=== PATIENT | female | born 1955 | race African-American/Black ===

== ENCOUNTER 2017-05-24 23:37 | Inpatient (IN) | payer BC, OTHER ==
[2017-05-25 00:41] LABS: #Eosinphils 0.1 thou/uL (0.0-0.7); #Lymphocytes 2.8 thou/uL (1.20-3.40); #Monocytes 0.4 thou/uL (0.11-0.59); #Neutrophils 4.1 thou/uL (1.40-6.50); %Basophils 0.4 % (0.0-1.0); %Eosinophils 0.9 % (0.0-10.0); %Lymphocytes 37.7 % (21.0-51.0); %Monocytes 5.6 % (0.0-10.0); Hematocrit 42.3 % (36.0-47.0); Mean Platelet Volume 6.4 fL (7.4-10.4); Red Blood Cell (RBC) Count 4.55 mill/uL (4.20-5.40); White Blood Cell (WBC) Count 7.4 thou/uL (4.8-10.8)
[2017-05-25 01:02] LABS: ALT (SGPT) 14 U/L (8-55); AST (SGOT) 19 U/L (5-34); Alkaline Phosphatase 120 U/L (40-150); Anion Gap 13 mmol/L (10-20); BUN (Urea Nitrogen) 11 mg/dL (9.8-20.1); Bilirubin, Total 0.3 mg/dL (0.2-1.2); CK (CPK) 151 U/L (29-168); Calc. Creatinine Clearance 0 mL/min (70-130); Calcium 9.3 mg/dL (7.8-10.44); Carbon Dioxide 27 mmol/L (23-31); Chloride 104 mmol/L (98-107); Estimated GFR-MDRD 78; Globulin 4.2 g/dL (2.4-3.5); Protein, Total 8.1 g/dL (6.0-8.3)
[2017-05-25 01:07] LABS: Troponin I 0.016 ng/mL (< 0.028)
[2017-05-25 03:54] LABS: Troponin I 0.151 ng/mL (< 0.028)
[2017-05-25] MEDS ORDERED: Ondansetron HCl/PF 4 MG/2 ML Vial IVP PRN ×2 (04:56→05:45)
[2017-05-25] MEDS ORDERED: Ondansetron ODT 4 MG TAB SL PRN (04:56)
[2017-05-25 05:36] VITALS: BMI 26.3
[2017-05-25] MEDS ORDERED: Acetaminophen 650 MG Suppository PR PRN (05:45)
[2017-05-25] MEDS ORDERED: Ondansetron ODT 4 MG TAB PO PRN (05:45)
[2017-05-25] MEDS ORDERED: Dextrose 50% Abboject 50 ML SYRINGE SLOW IVP PRN (05:45)
[2017-05-25] MEDS ORDERED: Bisacodyl 10 MG SUPP PR PRN (05:45)
[2017-05-25] MEDS ORDERED: HumaLOG 300 UNITS/3 ML VIAL SC PRN (05:45)
[2017-05-25] MEDS ORDERED: Nitroglycerin 0.4 MG TAB (25 Tab Bottle) SL PRN (05:45)
[2017-05-25] MEDS ORDERED: Bisacodyl 5 MG TAB PO PRN (05:45)
[2017-05-25] MEDS ORDERED: Dextrose 5% in Water 1,000 ML IV PRN (05:45)
[2017-05-25] MEDS ORDERED: Acetaminophen 325 MG TAB PO PRN (05:45)
[2017-05-25 06:45] LABS: Magnesium 2.5 mg/dL (1.6-2.6); Phosphorus 3.4 mg/dL (2.3-4.7)
[2017-05-25 07:40] LABS: Hemoglobin A1c 9.5 % (4.0-6.0)
--- NOTE | 2017-05-25 07:57 | RAD ---
PORTABLE AP CHEST X-RAY: 05/25/2017 HISTORY: Chest pain. COMPARISON: 04/01/2014 FINDINGS: The cardiac silhouette and pulmonary vasculature are within normal limits. The lungs remain clear. There has been no interval change from the prior study. IMPRESSION: No acute cardiopulmonary process. POS: [facility]
--- NOTE | 2017-05-25 08:00 | HP-2 ---
DATE OF ADMISSION: 05/25/2017 LOCATION OF ADMISSION: [facility]. CODE STATUS: FULL PCP: Chad Mendes M.D. ATTENDING: Dr. Langley. RESIDENT: Kennedy Lemus M.D., PGY1. HISTORIAN: The patient herself. CHIEF COMPLAINT: Chest pain. HISTORY OF PRESENT ILLNESS: This is a 61-year-old -English female that had started experien cing chest pain around 9:00 this evening, said she was lying down in bed, said the pain lasted about 15 minutes, said the pain started in her chest, it was a sharp pain, radiated to the back and then radiated down her left arm, in which at that time she also experienced some numbness in the left arm . Denies any radiation of pain up the neck or into the jaw and stated that pain went away. She did not take anything or do anything to hope thing go away. She said when she was in the waiting room, the pain came back. Chest pain lasted a short time and stated it was not as bad. Reported experie ncing some nausea with this. Denied any vomiting. Denied any dizziness or loss of consciousness. Denied any other symptoms at this time. REVIEW OF SYSTEMS: All review of systems not listed in HPI are otherwise negative at this time. PAST MEDICAL HISTORY: Diabetes, hypertension, depression/anxiety. PAST SURGICAL HISTORY: Tubal ligation. ALLERGIES: No known drug allergies. MEDICATIONS: She takes lisinopril 10 mg, Zoloft, and takes Lantus 60 units. FAMILY HISTORY: Mom had breast cancer and dad was a diabetic. SOCIAL HISTORY: She is a ejly-gqri-com-day smoker for the last 3 years. No alcohol use and no illi cit drug use. PHYSICAL EXAMINATION: VITAL SIGNS: Blood pressure is 133/91, pulse is 88, respirations 16, temperature 98.0, pulse ox is 97% on room air, current weight is 71.67 kilograms. GENERAL: She is alert and oriented x3, well-developed, well-nourished, appropriately interactive. Eyes: Conjunctivae within normal limits. ENT: Oropharynx within normal limits. NECK: Supple, no lymphadenopathy, no thyromegaly, no bruits. CARDIOVASCULAR: Regular rate and rhythm. No murmurs, no gallops. Radial pulses and pedal pulses p alpated bilaterally. RESPIRATORY: Normal breathing effort, no retractions. Symmetric chest expansion. LUNGS: Clear to auscultation bilaterally. No wheezes, crackles. SKIN: Warm, dry. No cyanosis, lesions. ABDOMEN: Soft, nontender to palpation. Bowel sounds heard in all 4 quadrants. No masses. No dist ention. MUSCULOSKELETAL: Moves all extremities bilaterally. NEUROLOGIC: No focal neuro deficits. Sensation within normal limits. PSYCHIATRIC: Appropriate. LABORATORY DATA: White blood cell count 7.4, hemoglobin 13.6, hematocrit 42.3, MCV is 93, platelets 332. Sodium is 140, potassium 4.0, chloride is 104, bicarbonate 27, BUN is 11, creatinine is 0.89, blood glucose is 147, calcium is 9.3, total protein is 8.1, albumin 3.9, alkaline phosphatase is 12 0, AST is 19, ALT is 14, total bilirubin is 0.4. CK was 151, CK-MB was 2.0, and troponins were 0.01 6. A chest x-ray, official read was not completed, but from our read no abnormality was noted at this t jeovany. Heart size looked normal. ASSESSMENT AND PLAN: 1. Atypical versus typical chest pain. We will admit her to telemetry observation overnight and co ntinue on telemetry monitoring. We will continue to trend her troponins at least for 3 and we will give nitroglycerin p.r.n. for chest pain. We will start her on aspirin. We will start her on a mod erate dose statin at this time, as she was not taking any. We will make her n.p.o. at midnight. We will order her stress test in the morning, as she has never had any cardiac workup in the past she states. We will check her TSH, magnesium, and phosphorus. 2. Diabetes, type 2. We will get Accu-Cheks a.c. and at bedtime. We will start her on mild slidin g scale insulin. We will start her on Levemir according to her home dose, put her up and and give h er 30 units b.i.d. and we will check a hemoglobin A1c baseline on her. 3. Depression/anxiety. We will continue her home meds. 4. Hypertension. We will continue her home meds and continue to monitor vital signs and adjust as needed. 5. Gastroesophageal reflux disease prophylaxis. We will start her on omeprazole PPI for possible g astroesophageal reflux disease. 6. Deep vein thrombosis prophylaxis. I gave her sequential compression devices at this time.
[2017-05-25] MEDS ORDERED: Enoxaparin Sodium 80 MG/0.8 ML SYRINGE SC SCH ×2 (08:30→21:00)
[2017-05-25] MEDS ORDERED: Enoxaparin Sodium 60 MG/0.6 ML SYRINGE SC SCH ×2 (09:00→21:00)
[2017-05-25] MEDS ORDERED: Aspirin 81 mg Enteric Coated Tablet PO SCH (09:00)
[2017-05-25] MEDS ORDERED: Aspirin 325 MG TAB PO SCH (09:00)
[2017-05-25] MEDS ORDERED: Communication Order-Pharmacy FS SCH (09:45)
[2017-05-25] MEDS: Lisinopril 10 MG TAB PO SCH (10:19)
[2017-05-25] MEDS: Insulin Detemir 100 UNITS/ML 30 UNITS in Admixture Fee 1 EACH SC SCH (10:20)
--- NOTE | 2017-05-25 11:08 | CON ---
DATE OF CONSULTATION: 05/25/2017 INDICATION FOR CONSULTATION: A 61-year-old female with multiple risk factors for coronary artery di sease which include hypertension, diabetes, tobacco abuse, hypercholesterolemia, and family history of coronary artery disease. She presented to the hospital after having chest discomfort. Yesterday evening she had just gone to bed, she complained first all of her back had hurt and then spread to the left arm and to the chest area. She did not take any medication. She eventually got up out of bed. The pain did not improve. She went to the emergency room where she was admitted to the [facility] She says that she was not given any nitroglycerin in the emergency room and was only given 81 m g of aspirin. Since that time, she has been placed on Lovenox and cardiac enzymes have become posit sondra for a non-ST segment elevation myocardial infarction. She has been also placed on lisinopril an d Protonix while in the hospital. At this time, she is pain free. Cardiac enzymes have continued t o trend upwards. Her troponin I on admission to the emergency room was 0.016, second set was 0.051 and the third set is 0.84 and we obtained this early in the emergency room and it was unremarkable, it was only 2.0. 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 She has history depressions migraines, back pain. HOME MEDICATIONS: Include multivitamins, aspirin 81 mg a day, lisinopril 20 mg daily, metformin 100 0 mg b.i.d., Ambien 10 mg a day, sertraline 100 mg daily, Crestor 20 mg a day, and Lantus insulin 30 units q.12h. ALLERGIES: None. FAMILY HISTORY: She has a sister with coronary artery disease, otherwise unremarkable. SOCIAL HISTORY: She continues to smoke. There is no alcohol abuse. 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 She has 9 children, none of them have any heart disease that she i s aware of. REVIEW OF SYSTEMS: Eyes: She complains of left eye cataracts, some decrease in visions occasionall y which is also associated with her diabetes. Pulmonary: She admits to tobacco abuse for about 40 years. She smokes to half pack to 1 pack a day. She had no GI or complaints. No musculoskeleta l complaints unless she walks for a long distance and then she says she does get some discomfort in the legs; however, pulses are adequate. Neurologic: No history of seizures or syncope. PHYSICAL EXAMINATION: GENERAL: Reveals a well-developed, well-nourished female who is in no acute distress at this time. She is alert and oriented. HEENT: Shows head to be normocephalic and atraumatic. She does have very soft bilateral carotid br uits, little bit lateral on the right than the left. CARDIOVASCULAR: Reveals a regular rate and rhythm with normal S1, S2. I cannot hear an S3 nor an S 4, nor were there any significant murmurs, heaves, thrills, bruits or rubs. ABDOMEN: Soft and nontender. Positive bowel sounds are present. There is no organomegaly or steve s noted. No tenderness is noted. LUNGS: Chest is clear to auscultation. EXTREMITIES: Show no clubbing, cyanosis or edema. Pedal pulses are present. Popliteal pulses are present. NEUROLOGIC: She appears to be intact. She has normal strength and tone. SKIN: Warm and dry. DIAGNOSTIC DATA: Her EKG shows normal sinus rhythm with T-wave inversions and changes associated wi th left ventricular hypertrophy. There was no ST segment elevation noted. LABORATORY DATA: As noted above. Her creatinine is 0.89. Potassium is 4.0, hemoglobin 13.6. Card iac enzymes are as above. IMPRESSION: 1. Non-ST segment elevation myocardial infarction. I would advise her to undergo cardiac catheteri zation due to her multiple risk factors and presentation and to definitively rule out evidence of se christi coronary artery disease. If so, she may need to undergo angioplasty or stent placement or even bypass surgery. 2. History of tobacco abuse. I strongly encouraged her to stop smoking altogether. She says that she will and I suspect that some of her problems are due to the nicotine or tobacco abuse. 3. Hypercholesterolemia. She is very poorly controlled with medications. Her LDL level is 171 on Crestor 20 mg a day, we would increase this up to at least 40 mg a day and see whether or not that w ill improve the LDL level. She also will need to have a dietary consultation to ensure that she eat s a litter better diet. 4. History of hypertension. This is under good control at this time without any significant abnorm alities or any significant elevation of blood pressure at this time at home. She said her blood pre ssure also had been under reasonable control. 5. Diabetes. This will be dealt with by the primary care service. At this time, I would advise he r to undergo cardiac catheterization. I have explained the procedure and the risks to her to includ e bleeding, infection, possibility of myocardial infarction, CVA, renal insufficiency, allergic cont rast reaction and even the possibility of . She understands and agrees to proceed and we will plan for the procedure later today. Unless she becomes unstable or has an emergency during the day, then she may need to have emergency cardiac catheterization, but at this time, she appears to be do ing relatively well.
[2017-05-25] MEDS ORDERED: Nitroglycerin 0.1mg/Hour PATCH TD SCH (13:00)
[2017-05-25] MEDS ORDERED: Nitroglycerin 100MG/250ML BOT 250 ML ONE (14:41)
[2017-05-25] MEDS ORDERED: Heparin 10,000 UNITS/1 ML VIAL ONE (14:41)
[2017-05-25] MEDS ORDERED: Verapamil 5 MG/2 ML VIAL ONE (14:41)
[2017-05-25] MEDS ORDERED: traMADol HCl 50 MG TAB PO PRN (15:59)
[2017-05-25] MEDS ORDERED: Acetaminophen/Codeine 30-300mg Tablet PO PRN (15:59)
[2017-05-25] MEDS ORDERED: Sodium Chloride 0.9% 250 ML 200 ML IVPB SCH (16:15)
[2017-05-25] MEDS: Acetaminophen/Codeine 30-300mg Tablet PO PRN ×2 (16:54→21:13)
[2017-05-25] MEDS: Carvedilol 3.125 MG TAB PO SCH (16:54)
[2017-05-25] MEDS ORDERED: Communication Order-Pharmacy FS ONE (17:49)
[2017-05-25 18:46] LABS: Troponin I 13.562 ng/mL (< 0.028)
[2017-05-25] MEDS ORDERED: Atorvastatin Calcium 40 MG TAB PO SCH (21:00)
[2017-05-25] MEDS ORDERED: Insulin Detemir 100 UNITS/ML 30 UNITS in Admixture Fee 1 EACH SC SCH (21:00)
[2017-05-25] MEDS ORDERED: Atorvastatin Calcium 20 MG TAB PO SCH (21:00)
--- NOTE | 2017-05-25 23:58 | CON ---
DATE OF CONSULTATION: 05/25/2017 HISTORY OF PRESENT ILLNESS: This is a 61-year-old with cardiovascular risk factors including smokin g half-to-one pack a day, uncontrolled diabetes mellitus, severe hypertension poorly controlled and dyslipidemia. She presented after onset of chest pain about 9:00 last night to the Emergency Room w ith a non-ST elevation myocardial infarction. Her EKG showed only left ventricular hypertrophy with poor R-wave progression. She was taken to the labelling machine operator where she was found to have an occluded cir cumflex that did not visualize through collaterals. She had a distal left main of about 50%, proxim al circumflex of about 40% prior to its occlusion. She had a ramus with very distal significant fatuma nosis in two small branches. She had a ramus with about a 90% stenosis and an LAD with about 75-80% ostial stenosis and plaquing distally. The right coronary artery had about 40% mid stenosis and 50 % more distal stenosis. Left ventricular systolic function was normal/hyperdynamic. PAST MEDICAL HISTORY: As mentioned, the past medical history includes smoking. Her diabetes mitchit us is poorly controlled on insulin with a hemoglobin A1c of about 9.5. She has a longstanding histo ry of hypertension that has been poorly controlled. PAST SURGICAL HISTORY: Tubal ligation. 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 Family is present today including two daughters. MEDICATIONS: Include Lantus insulin 30 units q.12 hours, metformin 1000 b.i.d., Zoloft 100 daily, a spirin 81 a day, lisinopril 20 a day, atorvastatin 40 a day. LABORATORY VALUES: The patient had a peak troponin of 0.84 and that was about 9 hours post-onset of pain and about 12 hours prior to this dictation. Her cholesterol level was 171. Chest x-ray was clear and did not show cardiomegaly. PHYSICAL EXAMINATION: GENERAL: Alert, cooperative lady, 5 feet 7 inches, 168 pounds. NECK: No carotid bruits, no JVD. LUNGS: Clear to auscultation. CARDIAC: Regular rate and rhythm. No murmurs. ABDOMEN: Soft, nontender. EXTREMITIES: She has palpable pedal pulses bilaterally as well as left radial pulse with a dressing on her right wrist. She has phlebitis and an IV in her left antecubital space. She is right hand dominant. PLAN: At this time is for multivessel bypass grafting. We will recheck her troponin this evening a nd pending this plan on surgical intervention tomorrow.
[2017-05-26] MEDS: Nitroglycerin 0.4 MG TAB (25 Tab Bottle) SL PRN ×2 (03:45→03:54)
[2017-05-26] MEDS: Lisinopril 10 MG TAB PO SCH (05:28)
[2017-05-26] MEDS: Carvedilol 3.125 MG TAB PO SCH (05:28)
--- NOTE | 2017-05-26 06:54 | PDOC.FM ---
- Subjective Subjective: Patient complains of minimal chest pain this morning. She states that medications given for pain overnight have been helpful. She has no questions or concerns. - Objective MAR Reviewed: Yes Vital Signs & Weight: Vital Signs (12 hours) Temp Pulse Resp BP Pulse Ox 05/26/17 03:03 98.5 F 82 16 96/59 L 95 05/25/17 23:28 98.8 F 74 20 114/46 L 96 05/25/17 20:40 98.4 F 67 14 05/25/17 19:01 98.4 F 67 14 114/56 L 96 Weight Weight 74.752 kg I&O: 05/24/17 05/25/17 05/26/17 06:59 06:59 06:59 Intake Total 0 480 Balance 0 480 Result Diagrams: 05/26/17 07:03 05/26/17 07:03 <Nayana Iglesias - Last Filed: 05/26/17 07:57> - Objective Vital Signs & Weight: Weight Weight 71.849 kg Most Recent Monitor Data Heart Rate from ECG 99 NIBP 134/73 NIBP BP-Mean 102 Respiration from ECG 17 SpO2 99 Result Diagrams: 05/27/17 04:22 05/27/17 04:22 <Pawel Langley - Last Filed: 06/06/17 12:32> Phys Exam - Physical Examination Constitutional: NAD Respiratory: clear to auscultation bilateral Cardiovascular: RRR Gastrointestinal: soft, non-tender Psychiatric: normal affect <Nayana Iglesias - Last Filed: 05/26/17 07:57> Dx/Plan (2) Coronary artery disease Code(s): I25.10 - ATHSCL HEART DISEASE OF [place] CORONARY ARTERY W/O ANG PCTRS Status: Acute Plan: Multivessel CAD. CABG today. Continue ASA, high dose statin, betablocker therapy. Stresed importance of smoking cessation (3) Uncontrolled diabetes mellitus Code(s): E11.65 - TYPE 2 DIABETES MELLITUS WITH HYPERGLYCEMIA Status: Chronic Plan: Hgb A1C of 9.2 blood sugars are well controlled. Continue accuchecks and mild ssi (4) Depression with anxiety Status: Chronic Plan: Continue Zoloft. (5) Tobacco abuse Code(s): Z72.0 - TOBACCO USE Status: Chronic Plan: Pt declined Nicotine patch during hospitalization. Plans to quit "cold turkey" (6) NSTEMI (non-ST elevated myocardial infarction) Code(s): I21.4 - NON-ST ELEVATION (NSTEMI) MYOCARDIAL INFARCTION Status: Acute <Nayana Iglesias - Last Filed: 05/26/17 07:57> Attending Addendum - Attending Addendum I personally evaluated the patient and discussed the management with Dr. Iglesias on 05/26 I agree with the History, Examination, Assessment and Plan documented above with any addition or exceptions noted below. Multi-vessel coronary disease. Pain controlled since Cath. For CABG today. <Pawel Langley - Last Filed: 06/06/17 12:32>
[2017-05-26 07:17] LABS: #Lymphocytes 1.5 thou/uL (1.20-3.40); #Monocytes 0.6 thou/uL (0.11-0.59); %Eosinophils 0.2 % (0.0-10.0); %Lymphocytes 13.2 % (21.0-51.0); %Monocytes 5.5 % (0.0-10.0); Hematocrit 37.1 % (36.0-47.0); Mean Platelet Volume 6.7 fL (7.4-10.4); Red Blood Cell (RBC) Count 3.93 mill/uL (4.20-5.40); White Blood Cell (WBC) Count 11.1 thou/uL (4.8-10.8)
[2017-05-26 07:37] LABS: Anion Gap 11 mmol/L (10-20); BUN (Urea Nitrogen) 12 mg/dL (9.8-20.1); Calc. Creatinine Clearance 70 mL/min (70-130); Calcium 9.4 mg/dL (7.8-10.44); Carbon Dioxide 28 mmol/L (23-31); Chloride 106 mmol/L (98-107); Estimated GFR-MDRD 68
[2017-05-26] MEDS ORDERED: Fentanyl 250 MCG/5 ML VIAL ONE (08:58)
[2017-05-26] MEDS ORDERED: Midazolam HCl 5 mg/5 ml Vial ONE (08:58)
[2017-05-26] MEDS ORDERED: Vecuronium 10 MG VIAL ONE ×2 (08:58→10:18)
[2017-05-26] MEDS ORDERED: Dexmedetomidine 200 MCG/2 ML VIAL ONE (08:58)
[2017-05-26] MEDS ORDERED: Aspirin 81 mg Enteric Coated Tablet PO SCH (09:00)
[2017-05-26] MEDS ORDERED: CEFAZOLIN/Water 2 GM/20 ML SYRINGE ONE (09:36)
[2017-05-26] MEDS ORDERED: Midazolam HCl 2 mg/2 ml Vial ONE (09:40)
[2017-05-26] MEDS ORDERED: Heparin 10,000 UNITS/1 ML VIAL 30,000 UNITS in Sodium Chloride 0.9% 1,000 ML FS SCH (09:45)
[2017-05-26] MEDS ORDERED: Labetalol 100 MG/20 ML MDV ONE (10:18)
[2017-05-26] MEDS ORDERED: Lidocaine 2% MPF 10 ML AMP (For Epidural Use) ONE (10:18)
[2017-05-26] MEDS ORDERED: Propofol 200 MG/20 ML VIAL ONE (10:18)
[2017-05-26] MEDS ORDERED: DOPamine 400 MG/D5W 250 ML 250 ML ONE (10:26)
[2017-05-26] MEDS ORDERED: Nitroglycerin 50 MG/250 ML BOT 250 ML ONE (10:26)
[2017-05-26] MEDS ORDERED: Hetastarch 6% 500 ML 500 ML IVPB PRN (13:54)
[2017-05-26] MEDS ORDERED: Acetaminophen 325 MG TAB PO PRN (13:54)
[2017-05-26] MEDS ORDERED: Post-Op Insulin Drip Protocol IVPB ONE (13:54)
[2017-05-26] MEDS ORDERED: hydrALAZINE 20 MG/ML VIAL SLOW IVP PRN (13:54)
[2017-05-26] MEDS ORDERED: Bisacodyl 5 MG TAB PO PRN (13:54)
[2017-05-26] MEDS ORDERED: Phenylephrine 10 MG/NS 250 ML 250 ML IVPB PRN (13:54)
[2017-05-26] MEDS ORDERED: DOPamine 400 MG/D5W 250 ML 250 ML IVPB PRN (13:54)
[2017-05-26] MEDS ORDERED: Nitroglycerin 50 MG/250 ML BOT 250 ML IVPB PRN (13:54)
[2017-05-26] MEDS ORDERED: Mag-Al 1200 mg/1200 mg/30 ML UDCUP PO PRN (13:54)
[2017-05-26] MEDS ORDERED: Promethazine HCl 25 MG/ML VIAL IM PRN (13:54)
[2017-05-26] MEDS ORDERED: HYDROcodone/Acetaminophen 5/325 mg Tablet PO PRN (13:54)
[2017-05-26] MEDS ORDERED: Fentanyl 100 MCG/2 ML VIAL SLOW IVP PRN (13:54)
[2017-05-26] MEDS ORDERED: Ondansetron HCl/PF 4 MG/2 ML Vial IVP PRN (13:54)
[2017-05-26] MEDS ORDERED: Bisacodyl 10 MG SUPP PR PRN (13:54)
[2017-05-26] MEDS ORDERED: Guaifenesin DM 100-10/5 ML UDCUP PO PRN (13:54)
[2017-05-26] MEDS ORDERED: Magnesium Sulfate 5 GM in Sodium Chloride 0.9% 250 ML 1,000 ML IV SCH (13:54)
[2017-05-26] MEDS ORDERED: Dextrose 5% in Water 1,000 ML IV PRN (14:10)
[2017-05-26] MEDS ORDERED: Dextrose 50% Abboject 50 ML SYRINGE SLOW IVP PRN (14:10)
[2017-05-26 14:30] LABS: #Eosinphils 0.1 thou/uL (0.0-0.7); #Lymphocytes 1.5 thou/uL (1.20-3.40); #Monocytes 0.5 thou/uL (0.11-0.59); #Neutrophils 14.3 thou/uL (1.40-6.50); %Basophils 0.2 % (0.0-1.0); %Eosinophils 0.5 % (0.0-10.0); Hematocrit 33.6 % (36.0-47.0); Mean Platelet Volume 6.6 fL (7.4-10.4); Red Blood Cell (RBC) Count 3.53 mill/uL (4.20-5.40); White Blood Cell (WBC) Count 16.4 thou/uL (4.8-10.8)
[2017-05-26 14:36] LABS: PTT 36.6 SEC (22.9-36.1); Prothrombin Time 17.1 SEC (12.0-14.7)
[2017-05-26] MEDS: Insulin Detemir 100 UNITS/ML 30 UNITS in Admixture Fee 1 EACH SC SCH (14:45)
[2017-05-26] MEDS: Sodium Chloride 0.9% 1,000 ML IV SCH (14:46)
[2017-05-26 14:49] LABS: Anion Gap 13 mmol/L (10-20); BUN (Urea Nitrogen) 10 mg/dL (9.8-20.1); Calc. Creatinine Clearance 96 mL/min (70-130); Calcium 7.2 mg/dL (7.8-10.44); Carbon Dioxide 19 mmol/L (23-31); Chloride 112 mmol/L (98-107); Estimated GFR-MDRD Greater than 90
--- NOTE | 2017-05-26 14:49 | OP ---
PREOPERATIVE DIAGNOSIS: Coronary artery disease, status post myocardial infarction. PROCEDURE: Coronary artery bypass graft x5, good quality JASON to a 2-2.5 mm LAD with posterior plaq ueing, good quality saphenous vein to a distal right coronary artery 2.5 mm, good quality saphenous vein to a high diagonal 1.5 mm distal disease, good quality saphenous vein to a 1.25-1.5 distal circ umflex past the occlusion, sequential graft to saphenous vein to a distal ramus proximal diagonal. SURGEON: Dr. Fredrick Franklin. TROMBONE SLIDE ASSEMBLER: Jam Sanchez MD TRANSFUSION: One unit. DESCRIPTION OF PROCEDURE: After adequate anesthesia had been obtained, the patient was prepped and draped. Endovascular vein harvest in the left leg was performed. The greater saphenous vein by Dr. Sanchez. I performed a median sternotomy and then harvested the left internal mammary artery. After heparinization, the mammary was divided distally and treated with intraluminal papaverine. It was passed posterior to a small remnant of thymus gland. However, the LAD was very anterior and directl y in the field view. Aorta and right atrium were cannulated and cardiopulmonary bypass was institut ed. Following this, aorta was cross-clamped and a liter of cardioplegic solution was given, followi ng which the distal right coronary artery was initially opened. Saphenous vein anastomoses complete d here. The circumflex distal to the occluded vessel was opened and saphenous vein was anastomosed here to be later sutured in an end-to-side fashion to the sequential graft from the distal ramus bra on [facility] and then side to side to the high diagonal. Following completion of the JASON to LAD anastomosis , the crossclamp was removed, partial occluding clamp placed, and the right coronary graft was anast omosed to the aortic root as well as the sequential diagonal ramus graft. To the site of this vein graft was placed the distal circumflex graft. The patient was then weaned from cardiopulmonary bypa ss, cannulas were removed, and protamine given systemically. The sequential graft was slightly redu ndant between the diagonal and the distal ramus; however, lie nicely in the chest. Two mediastinal drains were placed following which the sternum was reapproximated with #7 interrupted wire. Vancomy kate paste, platelet-enriched blood, and platelet-poor plasma were used on the sternum and subcutaneo us tissues. The patient is to be taken to the ICU in guarded condition.
[2017-05-26 14:59] LABS: Oxyhemoglobin 96.1 % (94.0-97.0); Sodium 142 mmol/L (135-148)
[2017-05-26 15:00] LABS: Mechanical Tidal Volume 500 ml; Mode SIMV.PSV; Modified Allen's Test NOT DONE; Pressure Support 10 cmH2O; Vent YES
--- NOTE | 2017-05-26 16:41 | RAD ---
PORTABLE AP CHEST: Date: 05-26-17 History: Post open heart surgery. Comparison: 05-25-17 FINDINGS: There have been interval post-surgical changes related to CABG. Nasogastric tube is noted in place w ith the tip overlying the expected location of the gastric fundus. A right subclavian central venous catheter is noted in place with crosses the midline and is seen overlying the supraclavicular locat ion. The exact location of the tip is difficult to determine based on this exam. It may be within a left subclavian vein which is difficult to determine based on position of the patient. Mediastinal d rains is noted in place. Cardiac silhouette and pulmonary vasculature is within normal limits. There is no pneumothorax or pleural effusion. No other interval change. Endotracheal tube is noted in pb ce with tip overlying the T4 vertebral body above the level of the william. IMPRESSION: 1. Right subclavian central venous catheter in place which crosses the midline with tip overlying th e left supraclavicular region. This probably overlies the region of the left subclavian vein. This i s difficult to determine due to patient positioning. Correlation for blood return within the cathete r is recommended. 2. Remainder of tubes and lines as described above. 3. Post-surgical changes related to CABG. No pneumothorax or pleural effusion is seen. POS: [facility]
--- NOTE | 2017-05-26 16:44 | PDOC.CTH ---
Cardiology Progress Note - Subjective Pt. seen and eval. She is back from the OR, still intubated, waking up. - ROS not able to obtain ROS - Objective Vital Signs Temp Pulse Resp BP BP Pulse Ox 05/26/17 16:00 18 05/26/17 15:42 96.2 F L 73 12 05/26/17 14:18 73 137/72 05/26/17 08:00 98.5 F 76 18 05/26/17 07:05 98.5 F 76 18 119/56 L 98 Weight 164 lb 12.8 oz 05/25/17 05/26/17 05/27/17 06:59 06:59 06:59 Intake Total 0 480 Output Total 270 Balance 0 480 -270 - Physical Examination General/Neuro: other: (Waking up, responsive.) Lungs: CTA Heart: PMI normal Abdomen: NT/ND Extremities: other: (left leg in xenia-wrap.) - Labs Result Diagrams: 05/26/17 14:15 05/26/17 14:15 Troponin/CKMB CK-MB (CK-2) 2.0 ng/mL (0-6.6) 05/25/17 00:33 Troponin I 14.270 ng/mL (< 0.028) H* 05/26/17 07:03 - Assessment/Plan 1. s/p CABG for [place] and 3-vessel disease. Stable at present. Resume cardiac meds when taking po. 2. DM: on sliding scale. 3. Hypercholesterolemia: resume statins. 4. tobacco abuse. smoking cessation education.
[2017-05-26] MEDS ORDERED: Calcium Chloride 1 GM/10 ML Abboject SYRINGE ONE (16:46)
[2017-05-26] MEDS ORDERED: Protamine Sulfate 250 MG/25 ML VIAL ONE (16:46)
[2017-05-26] MEDS ORDERED: Nitroglycerin 50 MG/250 ML BOT ONE (16:46)
[2017-05-26] MEDS ORDERED: Cardioplegic Soln 1,000 ML BAG ONE (16:46)
[2017-05-26] MEDS ORDERED: Lidocaine 2% PF 100 mg/5 ml Syringe ONE (16:46)
[2017-05-26] MEDS ORDERED: Thrombin 5000 UNITS/5 ML VIAL ONE (16:46)
[2017-05-26] MEDS ORDERED: Aminocaproic Acid 5 GM/20 ML VIAL ONE (16:46)
[2017-05-26] MEDS ORDERED: Papaverine 60 MG/2 ML VIAL ONE (16:46)
[2017-05-26] MEDS ORDERED: Magnesium Sulfate 1 GM/2 ML VIAL ONE (16:46)
[2017-05-26] MEDS ORDERED: Heparin 5,000 UNITS/ML VIAL ONE (16:46)
[2017-05-26] MEDS ORDERED: Potassium Chloride 60 MEQ/30 ML VIAL ONE (16:46)
[2017-05-26] MEDS ORDERED: Sodium Bicarb 50 MEQ/50 ML Abboject 8.4% SYRINGE ONE (16:46)
[2017-05-26] MEDS ORDERED: Heparin 30,000 units/30 ml VIAL ONE (16:46)
[2017-05-26] MEDS: Ketorolac Tromethamine 30 MG/ML VIAL IVP SCH ×2 (17:12→23:00)
[2017-05-26] MEDS: CEFAZOLIN/Water 2 GM/20 ML SYRINGE SLOW IVP SCH (17:13)
[2017-05-26] MEDS: Fentanyl 100 MCG/2 ML VIAL SLOW IVP PRN ×2 (19:39→23:50)
[2017-05-26 19:55] LABS: Hematocrit 34.3 % (36.0-47.0)
[2017-05-26] MEDS: Potassium Chloride 20 MEQ/100 ML PREMIX BAG IVPB PRN (20:19)
[2017-05-26] MEDS: Famotidine/PF 20 mg/2ml Vial SLOW IVP SCH (20:20)
[2017-05-26] MEDS: Atorvastatin Calcium 20 MG TAB PO SCH (20:20)
[2017-05-27] MEDS: CEFAZOLIN/Water 2 GM/20 ML SYRINGE SLOW IVP SCH ×2 (00:03→08:53)
[2017-05-27] MEDS: Sodium Chloride 0.9% 1,000 ML IV SCH ×3 (00:15→21:05)
[2017-05-27] MEDS: Fentanyl 100 MCG/2 ML VIAL SLOW IVP PRN (03:50)
[2017-05-27 04:46] LABS: #Lymphocytes 2.1 thou/uL (1.20-3.40); #Monocytes 0.9 thou/uL (0.11-0.59); #Neutrophils 10.5 thou/uL (1.40-6.50); %Eosinophils 0.1 % (0.0-10.0); %Lymphocytes 15.4 % (21.0-51.0); %Monocytes 6.6 % (0.0-10.0); Hematocrit 29.9 % (36.0-47.0); Red Blood Cell (RBC) Count 3.19 mill/uL (4.20-5.40); White Blood Cell (WBC) Count 13.5 thou/uL (4.8-10.8)
[2017-05-27 05:17] LABS: Anion Gap 11 mmol/L (10-20); BUN (Urea Nitrogen) 14 mg/dL (9.8-20.1); Calc. Creatinine Clearance 86 mL/min (70-130); Calcium 7.6 mg/dL (7.8-10.44); Carbon Dioxide 20 mmol/L (23-31); Chloride 114 mmol/L (98-107); Estimated GFR-MDRD 87
[2017-05-27] MEDS: Ketorolac Tromethamine 30 MG/ML VIAL IVP SCH ×3 (06:00→17:15)
[2017-05-27] MEDS: Potassium Chloride 20 MEQ/100 ML PREMIX BAG IVPB PRN (06:05)
--- NOTE | 2017-05-27 06:18 | PDOC.FM ---
- Subjective Subjective: Patient doing well this morning. She was successfully extubated this morning. She states that her pain is currently under control. No adverse events overnight. - Objective MAR Reviewed: Yes Vital Signs & Weight: Vital Signs (12 hours) Temp Pulse Resp BP Pulse Ox 05/27/17 04:00 99.9 F H 20 05/27/17 02:41 90 114/70 05/27/17 02:00 19 05/27/17 00:00 15 05/26/17 22:42 84 113/55 L 05/26/17 22:00 12 05/26/17 20:00 99.9 F H 84 12 100 05/26/17 18:28 82 101/52 L Weight Weight 74.752 kg Most Recent Monitor Data Heart Rate from ECG 88 NIBP 104/61 NIBP BP-Mean 76 Respiration from ECG 14 SpO2 100 I&O: 05/25/17 05/26/17 05/27/17 06:59 06:59 06:59 Intake Total 0 480 333.3 Output Total 1025 Balance 0 480 -691.7 Result Diagrams: 05/27/17 04:22 05/27/17 04:22 <Nayana Iglesias - Last Filed: 05/27/17 08:29> - Objective Vital Signs & Weight: Weight Weight 71.849 kg Most Recent Monitor Data Heart Rate from ECG 99 NIBP 134/73 NIBP BP-Mean 102 Respiration from ECG 17 SpO2 99 Result Diagrams: 05/27/17 04:22 05/27/17 04:22 <Pawel Langley - Last Filed: 06/06/17 12:49> Phys Exam - Physical Examination Constitutional: NAD Respiratory: clear to auscultation bilateral Cardiovascular: RRR midline anterior chest incision covered in bandages. Gastrointestinal: soft, non-tender Musculoskeletal: no edema Neurological: non-focal Psychiatric: A&O x 3 <Nayana Iglesias - Last Filed: 05/27/17 08:29> Dx/Plan (1) S/P CABG x 5 Code(s): Z95.1 - PRESENCE OF AORTOCORONARY BYPASS GRAFT Status: Acute Plan: Pt recovering well. Pt required Nitroglycerin early this morning, but BPs have remained stable since discontinuation. Will continue to monitor. H/H dropped one point from yesterday. Pt had 240 ml output in chest tube yesterday, but none overnight. Will trend H/H to monitor for signs of bleeding. No signs of infection at this time. (2) Coronary artery disease Code(s): I25.10 - ATHSCL HEART DISEASE OF [place] CORONARY ARTERY W/O ANG PCTRS Status: Acute Plan: Multivessel CAD. Continue ASA, high dose statin, betablocker therapy. Stressed importance of smoking cessation (3) Uncontrolled diabetes mellitus Code(s): E11.65 - TYPE 2 DIABETES MELLITUS WITH HYPERGLYCEMIA Status: Chronic Plan: Hgb A1C of 9.2 Blood sugars have been well-controlled. Pt was on insulin drip overnight. Will resume pt's home regimen now that she has been extubated. (4) Depression with anxiety Status: Chronic Plan: Continue Zoloft. (5) Tobacco abuse Code(s): Z72.0 - TOBACCO USE Status: Chronic Plan: Pt declined Nicotine patch during hospitalization. Plans to quit "cold turkey" <Nayana Iglesias - Last Filed: 05/27/17 08:29> Attending Addendum - Attending Addendum I personally evaluated the patient and discussed the management with Dr. Iglesias on 05/27 I agree with the History, Examination, Assessment and Plan documented above with any addition or exceptions noted below. Post-op CABG D#1. Vitals normal. Afebrile. Extubated. Pericardial tubes in place and draining minimal blood. Acceptable glycemic control. <Pawel Langley - Last Filed: 06/06/17 12:49>
[2017-05-27 07:40] LABS: Oxyhemoglobin 97.4 % (94.0-97.0); Pressure Support 10 cmH2O; Sodium 141 mmol/L (135-148); Spontaneous Rate 26 min; Vent YES
[2017-05-27 07:41] LABS: Mode PSV
--- NOTE | 2017-05-27 08:19 | RAD ---
CHEST ONE VIEW: History: Post open heart surgery. Comparison: Prior day. FINDINGS: The right central venous catheter tip is at the level of the left neck and is on an incorrect course . This likely needs to be repositioned. Endotracheal tube tip at the level of the clavicles in good position. Enteric tube tip is in the gas tric fundus. Mediastinal drain is present. No significant pneumothorax. IMPRESSION: 1. No significant change in the radiographic appearance of the chest. Subclavian central venous cath eter tip in the left supraclavicular region and may need to be repositioned. POS: [facility]
[2017-05-27] MEDS ORDERED: Insulin Detemir 100 UNITS/ML 6 UNITS in Pre-Filled Syringe 1 EACH SC SCH (08:30)
--- NOTE | 2017-05-27 08:33 | CON ---
DATE OF CONSULTATION: 05/27/2017 REASON FOR CONSULTATION: CCU protocol. HISTORY OF PRESENT ILLNESS: A 61-year-old female who underwent coronary bypass grafting surgery yes terday. She has just been extubated this morning. She is doing well and does not have any complain ts of shortness of breath. She was admitted on 05/25/2017 with chest pain and non-ST segment elevat ion myocardial infarction. PAST MEDICAL HISTORY: 1. Tobacco abuse. 2. Diabetes mellitus. 3. Hypertension. PAST SURGICAL HISTORY: Tubal ligation. SOCIAL HISTORY: Smokes at least a pack a day. Does not consume alcohol. MEDICATIONS PRIOR TO ADMISSION: Lantus, metformin, Zoloft, aspirin, lisinopril, atorvastatin. She denies any use of oxygen or inhalers. REVIEW OF SYSTEMS: Otherwise, negative. PHYSICAL EXAMINATION: VITAL SIGNS: Temperature 99.9, pulse 78, blood pressure 126/54, O2 sat 100%. GENERAL: She is awake and alert, in no distress. HEENT: Unremarkable. NECK: No JVD. LUNGS: Clear to auscultation without wheezing. CARDIOVASCULAR: S1, S2 regular. ABDOMEN: Soft. EXTREMITIES: No edema. Chest x-ray is clear. LABORATORY DATA: White blood cell count 13, hematocrit 29.9, platelet count 170. Sodium 140, potas sium 4, chloride 114, CO2 20, BUN 14, creatinine 0.8, glucose 118. ASSESSMENT: 1. Status post coronary artery bypass graft. 2. Likely underlying chronic obstructive pulmonary disease. PLAN: 1. She has been extubated. 2. Continue nebulization treatments as needed. 3. Increase activity as needed.
[2017-05-27] MEDS: Famotidine/PF 20 mg/2ml Vial SLOW IVP SCH ×2 (08:51→21:04)
[2017-05-27] MEDS ORDERED: Aspirin 325 MG TAB PO SCH (09:00)
[2017-05-27] MEDS ORDERED: Potassium Chloride 20 MEQ TAB PO SCH (10:00)
[2017-05-27] MEDS: Insulin Regular 300 UNITS/3 ML VIAL SC PRN ×3 (11:18→21:04)
[2017-05-27] MEDS: HYDROcodone/Acetaminophen 5/325 mg Tablet PO PRN ×2 (15:18→19:48)
--- NOTE | 2017-05-27 16:46 | PDOC.CTH ---
<Delisa Henriquez - Last Filed: 05/27/17 16:47> Cardiology Progress Note - Subjective The pt was seen and examined. No overnight events. No cardiac complaints. She was extubated this AM. She already up to chair every mealtime. She complains of soreness at MSI and Lt saph areas. She is willing to quit smoking - Objective Vital Signs Temp Pulse Resp BP Pulse Ox 05/27/17 08:00 100.2 F H 90 20 05/27/17 07:47 3 L 05/27/17 07:26 85 139/63 05/27/17 06:00 20 Weight 166 lb 8 oz 05/26/17 05/27/17 05/28/17 06:59 06:59 06:59 Intake Total 480 1728.7 1085 Output Total 1165 385 Balance 480 563.7 700 - Physical Examination General/Neuro: alert & oriented x3 Neck: no JVD present Lungs: CTA Heart: RRR Abdomen: soft Extremities: other: (No edema) - Telemetry Telemetry Rhythm: ST 100s - Labs Result Diagrams: 05/27/17 04:22 05/27/17 04:22 Troponin/CKMB CK-MB (CK-2) 2.0 ng/mL (0-6.6) 05/25/17 00:33 Troponin I 14.270 ng/mL (< 0.028) H* 05/26/17 07:03 - Assessment/Plan 1. CAD with s/p CABG x5 on 05/26/17 - Stable; on ASA, but not MEHRDAD or BBlocker; will start BBlocker once her BP is stable 2. DM type 2 - Blood glucose check ASHS with Insulin sliding scale. 3. Hypercholesterolemia - on Statin med. 4. tobacco abuse - She is willing to stop smoking5. Depression - on Zoloft MAR reviewed Review of Systems - Review of Systems Constitutional: reports: no symptoms reported EENTM: reports: no symptoms reported Respiratory: reports: no symptoms reported Cardiac (ROS): reports: no symptoms reported ABD/GI: reports: no symptoms reported : reports: no symptoms reported Musculoskeletal: reports: no symptoms reported Skin: reports: no symptoms reported <Bhavik Miguel - Last Filed: 05/27/17 18:49> Cardiology Progress Note - Objective Vital Signs Temp Pulse Resp BP Pulse Ox 05/27/17 08:00 100.2 F H 90 20 05/27/17 07:47 3 L 05/27/17 07:26 85 139/63 Weight 166 lb 8 oz 05/26/17 05/27/17 05/28/17 06:59 06:59 06:59 Intake Total 480 1728.7 1325 Output Total 1165 455 Balance 480 563.7 870 - Labs Result Diagrams: 05/27/17 04:22 05/27/17 04:22 Troponin/CKMB CK-MB (CK-2) 2.0 ng/mL (0-6.6) 05/25/17 00:33 Troponin I 14.270 ng/mL (< 0.028) H* 05/26/17 07:03 - Assessment/Plan Pt. seen and eval. Doing well after CABG. Nocomplaints. I agree with the A/P by the SENIOR DESIGN ENGINEERING SPECIALIST.
[2017-05-27] MEDS: Atorvastatin Calcium 20 MG TAB PO SCH (21:04)
[2017-05-28] MEDS: Ketorolac Tromethamine 30 MG/ML VIAL IVP SCH ×2 (00:07→06:09)
[2017-05-28] MEDS: HYDROcodone/Acetaminophen 5/325 mg Tablet PO PRN ×4 (00:08→22:08)
[2017-05-28] MEDS: Sodium Chloride 0.9% 1,000 ML IV SCH (06:25)
[2017-05-28] MEDS ORDERED: Guaifenesin DM 100-10/5 ML UDCUP PO PRN (06:31)
[2017-05-28] MEDS ORDERED: Bisacodyl 10 MG SUPP PR PRN (06:31)
[2017-05-28] MEDS ORDERED: Fentanyl 100 MCG/2 ML VIAL SLOW IVP PRN (06:31)
[2017-05-28] MEDS ORDERED: Milk Of Magnesia 30 ML UDCUP PO PRN (06:31)
[2017-05-28] MEDS ORDERED: Ondansetron HCl/PF 4 MG/2 ML Vial IVP PRN (06:31)
[2017-05-28] MEDS ORDERED: Bisacodyl 5 MG TAB PO PRN (06:31)
[2017-05-28] MEDS ORDERED: Nitroglycerin 0.4 MG TAB 1 EACH SL PRN (06:31)
[2017-05-28] MEDS ORDERED: Mineral Oil ENEMA PR PRN (06:31)
[2017-05-28] MEDS ORDERED: Zolpidem Tartrate 5 MG TAB PO PRN (06:31)
[2017-05-28] MEDS ORDERED: Mag-Al 1200 mg/1200 mg/30 ML UDCUP PO PRN (06:31)
[2017-05-28] MEDS ORDERED: Dextrose 5% in Water 1,000 ML IV PRN (06:49)
[2017-05-28] MEDS ORDERED: Insulin Regular 300 UNITS/3 ML VIAL SC PRN (06:49)
[2017-05-28] MEDS ORDERED: Dextrose 50% Abboject 50 ML SYRINGE SLOW IVP PRN (06:49)
[2017-05-28] MEDS ORDERED: metFORMIN 500 MG TAB PO SCH (08:00)
--- NOTE | 2017-05-28 08:09 | PRG ---
DATE OF SERVICE: 05/28/2017 She is doing well. She is going to be transferred out to the floor. PHYSICAL EXAMINATION: VITAL SIGNS: Temperature is 99.1, pulse 80, blood pressure 119/68. HEENT: Unremarkable. NECK: No adenopathy or JVD. LUNGS: Clear. CARDIAC: S1 and S2 regular. ABDOMEN: Soft. EXTREMITIES: No edema. Chest x-ray is clear. LABORATORY DATA: No new labs were obtained today. ASSESSMENT: 1. Post-coronary artery bypass graft with stable respiratory status. 2. Controlled blood sugars. PLAN: Transfer out to the floor. Continue nebulization treatments as needed. Pulmonary will be av ailable as needed.
[2017-05-28] MEDS: Potassium Chloride 20 MEQ TAB PO SCH (08:30)
[2017-05-28] MEDS: metFORMIN 500 MG TAB PO SCH ×2 (08:30→17:00)
[2017-05-28] MEDS: Furosemide 40 MG TAB PO SCH (08:35)
[2017-05-28] MEDS: Multivitamin W/ Minerals 1 TAB PO SCH (08:35)
[2017-05-28] MEDS: Famotidine 20 MG TAB PO SCH ×2 (08:36→22:08)
[2017-05-28] MEDS: Metoprolol Tartrate 25 MG TAB PO SCH ×2 (08:36→22:08)
[2017-05-28] MEDS: Aspirin 325 mg Enteric Coated Tablet PO SCH (08:36)
[2017-05-28] MEDS: Insulin Detemir 100 UNITS/ML 30 UNITS in Pre-Filled Syringe 1 EACH SC SCH (08:37)
--- NOTE | 2017-05-28 08:46 | PDOC.FM ---
- Subjective Subjective: Patient is doing well today with no adverse events overnight. She reports minimal pain with movement. Pain is well-controlled with medications. - Objective MAR Reviewed: Yes Vital Signs & Weight: Vital Signs (12 hours) BP 05/28/17 08:36 117/69 Weight Weight 74.8 kg Most Recent Monitor Data Heart Rate from ECG 88 NIBP 119/68 NIBP BP-Mean 90 Respiration from ECG 16 SpO2 99 I&O: 05/27/17 05/28/17 05/29/17 06:59 06:59 06:59 Intake Total 1728.7 2126 Output Total 1165 856 Balance 563.7 1270 Result Diagrams: 05/27/17 04:22 05/27/17 04:22 <Nayana Iglesias - Last Filed: 05/28/17 08:44> - Objective Vital Signs & Weight: Weight Weight 71.849 kg Most Recent Monitor Data Heart Rate from ECG 99 NIBP 134/73 NIBP BP-Mean 102 Respiration from ECG 17 SpO2 99 Result Diagrams: 05/27/17 04:22 05/27/17 04:22 <Pawel Langley - Last Filed: 06/06/17 13:01> Phys Exam - Physical Examination Constitutional: NAD Respiratory: clear to auscultation bilateral Cardiovascular: RRR Gastrointestinal: soft, non-tender, no distention Musculoskeletal: no edema Neurological: moves all 4 limbs Psychiatric: normal affect <Nayana Iglesias - Last Filed: 05/28/17 08:44> Dx/Plan (1) S/P CABG x 5 Code(s): Z95.1 - PRESENCE OF AORTOCORONARY BYPASS GRAFT Status: Acute Plan: Pt recovering well. Chest tube removed, and pt stable for transfer to floor per Dr. Franklin. (2) Coronary artery disease Code(s): I25.10 - ATHSCL HEART DISEASE OF [place] CORONARY ARTERY W/O ANG PCTRS Status: Acute Plan: Multivessel CAD. Continue ASA, high dose statin, betablocker therapy. BPs well controlled. Stressed importance of smoking cessation (3) Uncontrolled diabetes mellitus Code(s): E11.65 - TYPE 2 DIABETES MELLITUS WITH HYPERGLYCEMIA Status: Chronic Plan: Hgb A1C of 9.2 pt's home regimen restarted. Blood sugars remain well-controlled. we will continue to monitor AC/HS accuchecks. (4) Depression with anxiety Status: Chronic Plan: Pt states that she is doing well emotionally today. Continue Zoloft. (5) Tobacco abuse Code(s): Z72.0 - TOBACCO USE Status: Chronic Plan: Pt declined Nicotine patch during hospitalization. Plans to quit "cold turkey" <Nayana Iglesias - Last Filed: 05/28/17 08:44> Attending Addendum - Attending Addendum I personally evaluated the patient and discussed the management with Dr. Iglesias on 05/28 I agree with the History, Examination, Assessment and Plan documented above with any addition or exceptions noted below. VS acceptable and Afebrile. Good Glycemic control. Tubes out. To floor with postop rehab. Stressed Tobacco cessation, help available if desired. <Pawel Langley - Last Filed: 06/06/17 13:01>
[2017-05-28] MEDS ORDERED: Lisinopril 20 MG TAB PO SCH (09:00)
--- NOTE | 2017-05-28 09:24 | RAD ---
CHEST 1 VIEW: Date: 05/28/17 HISTORY: Post open heart surgery. COMPARISON: Chest 1 view prior day. FINDINGS: Central venous catheter tip continues to project in the left supraclavicular region. Mediastinal brittany ins are present. Patient has been extubated and the enteric tube has been removed. No pneumothorax. IMPRESSION: Interval extubation and removal of the enteric tube without complication. POS: [facility]
--- NOTE | 2017-05-28 15:15 | PDOC.CTH ---
<Delisa Henriquez - Last Filed: 05/28/17 15:11> Cardiology Progress Note - Subjective The pt was seen and examined. No overnight events. No cardiac complaints. She is ready taking bath at this moment without any difficulties - Objective Vital Signs Temp Pulse Pulse Pulse Resp BP BP 05/28/17 13:37 105 H 92 104/55 L 05/28/17 13:00 99.9 F H 90 20 05/28/17 09:45 98.2 F 84 18 05/28/17 08:55 96 96 132/74 05/28/17 08:36 117/69 05/28/17 08:00 98.4 F 96 16 BP BP Pulse Ox Pulse Ox Pulse Ox 05/28/17 13:37 92/55 L 95 95 05/28/17 13:00 114/61 05/28/17 09:45 100/65 97 05/28/17 08:55 134/73 99 94 L 05/28/17 08:36 05/28/17 08:00 99 Weight 164 lb 14.492 oz 05/27/17 05/28/17 05/29/17 06:59 06:59 06:59 Intake Total 1728.7 2126 330 Output Total 1165 856 200 Balance 563.7 1270 130 - Physical Examination General/Neuro: alert & oriented x3 Neck: no JVD present Lungs: CTA Heart: RRR Abdomen: soft Extremities: other: (No edema) - Telemetry Telemetry Rhythm: SR 80-90s - Labs Result Diagrams: 05/27/17 04:22 05/27/17 04:22 Troponin/CKMB CK-MB (CK-2) 2.0 ng/mL (0-6.6) 05/25/17 00:33 Troponin I 14.270 ng/mL (< 0.028) H* 05/26/17 07:03 - Assessment/Plan 1. CAD with s/p CABG x5 on 05/26/17 - Stable; on ASA and BBlocker; cont. monitor 2. DM type 2 - Blood glucose check ASHS with Insulin sliding scale. 3. Hypercholesterolemia - on Statin med. 4. tobacco abuse - She is willing to stop smoking5. Depression - on Zoloft MAR reviewed Review of Systems - Review of Systems Constitutional: reports: no symptoms reported EENTM: reports: no symptoms reported Respiratory: reports: no symptoms reported Cardiac (ROS): reports: no symptoms reported ABD/GI: reports: no symptoms reported : reports: no symptoms reported Musculoskeletal: reports: no symptoms reported Skin: reports: no symptoms reported Neurological: reports: no symptoms reported <Bhavik Miguel - Last Filed: 05/28/17 17:11> Cardiology Progress Note - Objective Vital Signs Temp Pulse Pulse Pulse Resp BP BP 05/28/17 16:00 99.4 F 86 18 05/28/17 13:37 105 H 92 104/55 L 05/28/17 13:00 99.9 F H 90 20 05/28/17 09:45 98.2 F 84 18 05/28/17 08:55 96 96 132/74 05/28/17 08:36 117/69 05/28/17 08:00 98.4 F 96 16 BP BP Pulse Ox Pulse Ox Pulse Ox 05/28/17 16:00 122/67 05/28/17 13:37 92/55 L 95 95 05/28/17 13:00 114/61 05/28/17 09:45 100/65 97 05/28/17 08:55 134/73 99 94 L 05/28/17 08:36 05/28/17 08:00 99 Weight 164 lb 14.492 oz 05/27/17 05/28/17 05/29/17 06:59 06:59 06:59 Intake Total 1728.7 2126 330 Output Total 1165 856 200 Balance 563.7 1270 130 - Labs Result Diagrams: 05/27/17 04:22 05/27/17 04:22 Troponin/CKMB CK-MB (CK-2) 2.0 ng/mL (0-6.6) 05/25/17 00:33 Troponin I 14.270 ng/mL (< 0.028) H* 05/26/17 07:03 - Assessment/Plan Pt. seen and eval. by me. No cardiac complaints. I agree with the A/P by the VEHICLE MODIFICATION TECHNICIAN.Continue present meds.
[2017-05-28] MEDS: Atorvastatin Calcium 20 MG TAB PO SCH (22:08)
[2017-05-29] MEDS: HYDROcodone/Acetaminophen 5/325 mg Tablet PO PRN ×4 (05:04→21:46)
[2017-05-29] MEDS: metFORMIN 500 MG TAB PO SCH ×2 (08:09→16:56)
[2017-05-29] MEDS: Lisinopril 10 MG TAB PO SCH (08:09)
[2017-05-29] MEDS: Aspirin 325 mg Enteric Coated Tablet PO SCH (08:09)
[2017-05-29] MEDS: Potassium Chloride 20 MEQ TAB PO SCH (08:10)
[2017-05-29] MEDS: Furosemide 40 MG TAB PO SCH (08:10)
[2017-05-29] MEDS: Famotidine 20 MG TAB PO SCH ×2 (08:10→21:45)
[2017-05-29] MEDS: Multivitamin W/ Minerals 1 TAB PO SCH (08:10)
--- NOTE | 2017-05-29 08:50 | PDOC.FM ---
- Subjective Subjective: Patient doing well this morning with no complaints. She complains of minimal pain with exertion. No adverse events overnight. - Objective MAR Reviewed: Yes Vital Signs & Weight: Vital Signs (12 hours) Temp Pulse Resp BP BP Pulse Ox 05/29/17 08:03 99.2 F 92 18 115/73 98 05/29/17 04:00 98.9 F 90 18 109/60 94 L 05/29/17 02:48 94 L 05/29/17 00:00 99.1 F 98 18 121/62 94 L 05/28/17 21:25 99.7 F H 96 18 123/59 L 97 Weight Weight 74.389 kg Most Recent Monitor Data Heart Rate from ECG 99 NIBP 134/73 NIBP BP-Mean 102 Respiration from ECG 17 SpO2 99 I&O: 05/28/17 05/29/17 05/30/17 06:59 06:59 06:59 Intake Total 2126 1450 Output Total 856 200 Balance 1270 1250 Result Diagrams: 05/27/17 04:22 05/27/17 04:22 <Nayana Iglesias - Last Filed: 05/29/17 08:48> - Objective Vital Signs & Weight: Weight Weight 71.849 kg Most Recent Monitor Data Heart Rate from ECG 99 NIBP 134/73 NIBP BP-Mean 102 Respiration from ECG 17 SpO2 99 Result Diagrams: 05/27/17 04:22 05/27/17 04:22 <Pawel Langley - Last Filed: 06/06/17 13:05> Phys Exam - Physical Examination Constitutional: NAD Respiratory: clear to auscultation bilateral Cardiovascular: RRR, no significant murmur well-healing midline anterior chest incision Gastrointestinal: soft, non-tender, no distention Psychiatric: normal affect, A&O x 3 <Nayana Iglesias - Last Filed: 05/29/17 08:48> Dx/Plan (1) S/P CABG x 5 Code(s): Z95.1 - PRESENCE OF AORTOCORONARY BYPASS GRAFT Status: Acute Plan: Pt recovering well. Cardiac rehab planned for outpatient. (2) Coronary artery disease Code(s): I25.10 - ATHSCL HEART DISEASE OF [place] CORONARY ARTERY W/O ANG PCTRS Status: Acute Plan: Multivessel CAD. Continue ASA, high dose statin, betablocker therapy. BPs well controlled. Stressed importance of smoking cessation (3) Uncontrolled diabetes mellitus Code(s): E11.65 - TYPE 2 DIABETES MELLITUS WITH HYPERGLYCEMIA Status: Chronic Plan: Hgb A1C of 9.2 pt's home regimen restarted. Blood sugars remain well-controlled. we will continue to monitor AC/HS accuchecks. (4) Depression with anxiety Status: Chronic Plan: Pt states that she is doing well emotionally today. Continue Zoloft. (5) Tobacco abuse Code(s): Z72.0 - TOBACCO USE Status: Chronic Plan: Pt declined Nicotine patch during hospitalization. Plans to quit "cold turkey" - Plan Plan: Disposition: Stable. Pt doing very well. <Nayana Iglesias - Last Filed: 05/29/17 08:48> Attending Addendum - Attending Addendum I personally evaluated the patient and discussed the management with Dr. Iglesias on 05/29/17. I agree with the History, Examination, Assessment and Plan documented above with any addition or exceptions noted below. Pain controlled. IS instructions reviewed. VSS nl. Good glycemic control. Lungs CTA. OOB ambulating with assistance well. Switched to home regimen. <Pawel Langley - Last Filed: 06/06/17 13:05>
[2017-05-29] MEDS: Metoprolol Tartrate 25 MG TAB PO SCH ×2 (09:44→21:46)
[2017-05-29] MEDS: Insulin Detemir 100 UNITS/ML 30 UNITS in Pre-Filled Syringe 1 EACH SC SCH (09:44)
[2017-05-29 10:26] LABS: Base Excess -0.1 mEq/L (0 (+/- 2.5)); O2 Content (venous) 7.2 VOL% (12.5-17.5); pH (venous) 7.413 (7.35-7.45)
[2017-05-29 10:27] LABS: Sodium 141 mmol/L (135-148)
[2017-05-29 10:27] LABS: Oxyhemoglobin 97.9 % (94.0-97.0); Sodium 141 mmol/L (135-148)
[2017-05-29 10:27] LABS: Oxyhemoglobin 97.8 % (94.0-97.0); Sodium 141 mmol/L (135-148)
[2017-05-29 10:31] LABS: Oxyhemoglobin 97.4 % (94.0-97.0); Sodium 141 mmol/L (135-148)
--- NOTE | 2017-05-29 10:34 | PDOC.CTH ---
<Delisa Henriquez - Last Filed: 05/29/17 10:33> Cardiology Progress Note - Subjective The pt was seen and examined. No overnight events. No cardiac complaints. She has walked today with PT without any cardiac complaints. - Objective Vital Signs Temp Pulse Resp BP BP Pulse Ox 05/29/17 08:03 99.2 F 92 18 115/73 98 05/29/17 04:00 98.9 F 90 18 109/60 94 L 05/29/17 02:48 94 L 05/29/17 00:00 99.1 F 98 18 121/62 94 L Weight 164 lb 05/28/17 05/29/17 05/30/17 06:59 06:59 06:59 Intake Total 2126 1450 Output Total 856 200 Balance 1270 1250 - Physical Examination General/Neuro: alert & oriented x3 Neck: no JVD present Lungs: CTA Heart: RRR Abdomen: soft Extremities: other: (No edema; Bilat KISHOR) - Telemetry Telemetry Rhythm: SR - Labs Result Diagrams: 05/27/17 04:22 05/27/17 04:22 Troponin/CKMB CK-MB (CK-2) 2.0 ng/mL (0-6.6) 05/25/17 00:33 Troponin I 14.270 ng/mL (< 0.028) H* 05/26/17 07:03 - Assessment/Plan 1. CAD with s/p CABG x5 on 05/26/17 - Stable; on ASA and BBlocker; Lisinopril was dicreased and Metoprolol was increased today by surgeon. cont. monitor 2. DM type 2 - Blood glucose check ASHS with Insulin sliding scale. 3. Hypercholesterolemia - on Statin med. 4. tobacco abuse - She is willing to stop smoking5. Depression - on Zoloft MAR reviewed Review of Systems - Review of Systems Constitutional: reports: no symptoms reported EENTM: reports: no symptoms reported Respiratory: reports: no symptoms reported Cardiac (ROS): reports: no symptoms reported ABD/GI: reports: no symptoms reported : reports: no symptoms reported Musculoskeletal: reports: no symptoms reported Skin: reports: no symptoms reported <Bhavik Miguel - Last Filed: 05/29/17 18:01> Cardiology Progress Note - Objective Vital Signs Temp Pulse Pulse Pulse Resp BP BP 05/29/17 16:00 99.2 F 93 16 05/29/17 13:35 98 87 115/59 L 108/63 05/29/17 11:48 99.0 F 92 18 05/29/17 10:36 05/29/17 09:07 97 98 123/64 144/72 H 05/29/17 08:03 99.2 F 92 18 BP BP Pulse Ox Pulse Ox Pulse Ox 05/29/17 16:00 126/77 96 05/29/17 13:35 97 93 L 05/29/17 11:48 132/78 98 05/29/17 10:36 98 05/29/17 09:07 96 98 05/29/17 08:03 115/73 98 Weight 164 lb 05/28/17 05/29/17 05/30/17 06:59 06:59 06:59 Intake Total 2126 1450 Output Total 856 200 Balance 1270 1250 - Labs Result Diagrams: 05/27/17 04:22 05/27/17 04:22 Troponin/CKMB CK-MB (CK-2) 2.0 ng/mL (0-6.6) 05/25/17 00:33 Troponin I 14.270 ng/mL (< 0.028) H* 05/26/17 07:03 - Assessment/Plan Pt. loren and hank. I agree with the A/P by the OPHTHALMIC LENS INSPECTOR. She denies any cardiac complaints.Doing well s/p CBG. Meds reviewed. Chest clear,RRR, no edema. Probably home soon.
[2017-05-29 10:43] LABS: Mode OR ABG; Vent YES
[2017-05-29 10:44] LABS: Mode OR ABG; Vent YES
[2017-05-29 10:44] LABS: Mode OR ABG; Vent YES
[2017-05-29 10:50] LABS: Mode OR ABG; Vent YES
[2017-05-29 11:10] LABS: Mode OR ABG; Sodium 143 mmol/L (135-148); Vent YES
--- NOTE | 2017-05-29 15:49 | EKG ---
Test Reason : Blood Pressure : / mmHG Vent. Rate : 064 BPM Atrial Rate : 064 BPM P-R Int : 186 ms QRS Dur : 096 ms QT Int : 424 ms P-R-T Axes : 062 057 251 degrees QTc Int : 437 ms Normal sinus rhythm Left ventricular hypertrophy with repolarization abnormality Abnormal ECG When compared with ECG of 24-MAY-2017 23:44, (Unconfirmed) No significant change was found Confirmed by DR. Soraida CARRANZA ([id number]) on 05/29/2017 3:49:07 PM Referred By: Alyson MATOS Confirmed By:DR. Soraida CARRANZA
--- NOTE | 2017-05-29 15:54 | EKG ---
Test Reason : POST CABG Blood Pressure : / mmHG Vent. Rate : 074 BPM Atrial Rate : 074 BPM P-R Int : 194 ms QRS Dur : 108 ms QT Int : 454 ms P-R-T Axes : 071 063 -64 degrees QTc Int : 503 ms Normal sinus rhythm T wave abnormality, consider inferior ischemia T wave abnormality, consider anterolateral ischemia Prolonged QT Abnormal ECG When compared with ECG of 25-MAY-2017 09:04, (Unconfirmed) QT has lengthened Confirmed by DR. Soraida CARRANZA ([id number]) on 05/29/2017 3:54:44 PM Referred By: KOLTON Confirmed By:DR. Soraida CARRANZA
[2017-05-29] MEDS: Atorvastatin Calcium 20 MG TAB PO SCH (21:46)
--- NOTE | 2017-05-30 04:52 | PDOC.FM ---
- Subjective Subjective: Patient doing well this AM. No significant overnight events. Patient denies shortness of breath, chest pain, nausea, or vomiting. Patient worked with PT yesterday and did not experience any difficulties. manager monitoring showed7 beats of SVT at 01:09 this morning. Patient asleep and asymptomatic. - Objective MAR Reviewed: Yes Vital Signs & Weight: Vital Signs (12 hours) Temp Pulse Resp BP Pulse Ox 05/30/17 04:00 98.9 F 88 18 112/62 95 05/29/17 20:35 98.3 F 90 18 94 L 05/29/17 19:20 98.3 F 90 18 112/66 94 L Weight Weight 74.389 kg Most Recent Monitor Data Heart Rate from ECG 99 NIBP 134/73 NIBP BP-Mean 102 Respiration from ECG 17 SpO2 99 I&O: 05/28/17 05/29/17 05/30/17 06:59 06:59 06:59 Intake Total 2126 1450 Output Total 856 200 Balance 1270 1250 Result Diagrams: 05/27/17 04:22 05/27/17 04:22 Radiology Reviewed by me: Yes <Tarah Moralez - Last Filed: 05/30/17 07:27> - Objective Vital Signs & Weight: Vital Signs (12 hours) Temp Pulse Resp BP Pulse Ox 05/30/17 04:00 98.9 F 88 18 112/62 95 Weight Weight 162 lb Most Recent Monitor Data Heart Rate from ECG 99 NIBP 134/73 NIBP BP-Mean 102 Respiration from ECG 17 SpO2 99 I&O: 05/29/17 05/30/17 05/31/17 06:59 06:59 05:59 Intake Total 1450 300 Output Total 200 Balance 1250 300 Result Diagrams: 05/27/17 04:22 05/27/17 04:22 <Chad Mendes - Last Filed: 05/30/17 10:22> Phys Exam - Physical Examination Constitutional: NAD HEENT: PERRLA, moist MMs Neck: no JVD, supple Respiratory: no wheezing, no rales, no rhonchi, clear to auscultation bilateral Cardiovascular: RRR, no significant murmur Gastrointestinal: soft, non-tender, no distention, positive bowel sounds Musculoskeletal: pulses present Neurological: moves all 4 limbs Psychiatric: normal affect, A&O x 3 Skin: no rash Deviation from normal: Sternotomy site clean, dry and intact <Tarah Moralez - Last Filed: 05/30/17 07:27> Dx/Plan (1) S/P CABG x 5 Code(s): Z95.1 - PRESENCE OF AORTOCORONARY BYPASS GRAFT Status: Acute Plan: -5 vessel disease -Continue ASA, high dose statin, and BB -BPs well controlled -Counseled on smoking cessation -Counseled on healthy lifestyle choices - (2) Coronary artery disease Code(s): I25.10 - ATHSCL HEART DISEASE OF [place] CORONARY ARTERY W/O ANG PCTRS Status: Acute Qualifiers: Coronary Disease-Associated Artery/Lesion type: bypass graft [place] vs. transplanted heart: [place] heart Associated angina: with unstable angina Qualified Code(s): I25.700 - Atherosclerosis of coronary artery bypass graft(s) , unspecified, with unstable angina pectoris Plan: -Patient recovering well -Continue to work with PT until discharge -Cardiac rehab planned for outpatient -Continue high dose statin, ASA, Metoprolol -Consider replacing Calcium for cardioprotection (3) Uncontrolled diabetes mellitus Code(s): E11.65 - TYPE 2 DIABETES MELLITUS WITH HYPERGLYCEMIA Status: Chronic Qualifiers: Diabetes mellitus type: type 2 Plan: -HgA1c 9.2 -Patient restarted on home regimen of levemir -Blood sugars have remained well controlled in hospital -ACHS accuchecks -CC diet, HH diet -Levemir 30 SC QAM (4) Depression with anxiety Status: Chronic Plan: -Patient emotionally stable -Continue zoloft -Encourage patient to follow up outpatient with PCP for depression screening post discharge (5) Tobacco abuse Code(s): Z72.0 - TOBACCO USE Status: Chronic Plan: -Patient declined Nicotine patch during hospitalization -Counseled on cessation - Plan Plan: Disposition: stable, plans for discharge home once ok'd through cardiovascular surgery. Patient has arrangements for cardiac rehab after discharge. <Tarah Moralez - Last Filed: 05/30/17 07:27> Attending Addendum - Attending Addendum I personally evaluated the patient and discussed the management with [ Kirt] I agree with the History, Examination, Assessment and Plan documented above with any addition or exceptions noted below. Stable s/p 5V CABG. Awaiting d/c per Cardiovascular Surgery. <Chad Mendes - Last Filed: 05/30/17 10:22>
[2017-05-30] MEDS ORDERED: Atorvastatin Calcium 20 MG TAB PO SCH (08:46)
[2017-05-30] MEDS: HYDROcodone/Acetaminophen 5/325 mg Tablet PO PRN ×2 (10:34→20:31)
[2017-05-30] MEDS: Aspirin 325 mg Enteric Coated Tablet PO SCH (10:36)
[2017-05-30] MEDS: metFORMIN 500 MG TAB PO SCH ×2 (10:36→17:50)
[2017-05-30] MEDS: Potassium Chloride 20 MEQ TAB PO SCH (10:36)
[2017-05-30] MEDS: Lisinopril 10 MG TAB PO SCH (10:37)
[2017-05-30] MEDS: Multivitamin W/ Minerals 1 TAB PO SCH (10:37)
[2017-05-30] MEDS: Insulin Detemir 100 UNITS/ML 30 UNITS in Pre-Filled Syringe 1 EACH SC SCH (10:39)
[2017-05-30] MEDS: Furosemide 40 MG TAB PO SCH (10:39)
[2017-05-30] MEDS: Metoprolol Tartrate 25 MG TAB PO SCH ×2 (10:39→20:28)
[2017-05-30] MEDS: Famotidine 20 MG TAB PO SCH ×2 (10:40→20:28)
--- NOTE | 2017-05-30 13:46 | EKG ---
Test Reason : CHEST PAIN Blood Pressure : / mmHG Vent. Rate : 077 BPM Atrial Rate : 077 BPM P-R Int : 174 ms QRS Dur : 092 ms QT Int : 378 ms P-R-T Axes : 061 052 -43 degrees QTc Int : 427 ms Normal sinus rhythm Possible Left atrial enlargement Left ventricular hypertrophy with repolarization abnormality Abnormal ECG Confirmed by VANIA HILL, CARL ([id number]), editor news NORMAN DUENAS ([id number]) on 05/30/2017 1:45:55 PM Referred By: Confirmed By:CARL CARO MD
[2017-05-30] MEDS ORDERED: Atorvastatin Calcium 40 MG TAB PO SCH (21:00)
--- NOTE | 2017-05-31 05:54 | PDOC.FM ---
- Subjective Subjective: Patient doing well this AM. No significant overnight events. Hemodynamically stable. Eager to take on the neck step in her recovery. - Objective MAR Reviewed: Yes Vital Signs & Weight: Vital Signs (12 hours) Temp Pulse Resp BP Pulse Ox 05/31/17 04:00 98.1 F 86 18 111/55 L 98 05/30/17 20:00 99.4 F 91 18 95 05/30/17 19:15 99.4 F 91 18 112/59 L 95 Weight Weight 73.482 kg Most Recent Monitor Data Heart Rate from ECG 99 NIBP 134/73 NIBP BP-Mean 102 Respiration from ECG 17 SpO2 99 I&O: 05/29/17 05/30/17 05/31/17 06:59 06:59 05:59 Intake Total 2057 808 5042 Output Total 200 Balance 3607 610 4771 Result Diagrams: 05/27/17 04:22 05/27/17 04:22 EKG Reviewed by me: No Radiology Reviewed by me: No <Tarah Moralez - Last Filed: 05/31/17 07:48> - Objective Vital Signs & Weight: Vital Signs (12 hours) Temp Pulse Resp BP Pulse Ox 05/31/17 04:00 98.1 F 86 18 111/55 L 98 Weight Weight 158 lb 6.4 oz Most Recent Monitor Data Heart Rate from ECG 99 NIBP 134/73 NIBP BP-Mean 102 Respiration from ECG 17 SpO2 99 I&O: 05/30/17 05/31/17 06/01/17 07:59 06:59 06:59 Intake Total Balance Result Diagrams: 05/27/17 04:22 05/27/17 04:22 <Chad Mendes - Last Filed: 05/31/17 10:26> Phys Exam - Physical Examination Constitutional: NAD HEENT: moist MMs Neck: supple Respiratory: clear to auscultation bilateral Cardiovascular: RRR systolic murmur Gastrointestinal: soft, non-tender, no distention Musculoskeletal: pulses present Neurological: moves all 4 limbs Psychiatric: A&O x 3 Skin: no rash <Tarah Moralez - Last Filed: 05/31/17 07:48> Dx/Plan (1) S/P CABG x 5 Code(s): Z95.1 - PRESENCE OF AORTOCORONARY BYPASS GRAFT Status: Acute Plan: -5 vessel disease -Continue ASA, high dose statin, and BB -BPs well controlled during hospitalization -Counseled on smoking cessation -Counseled on healthy lifestyle choices (2) Coronary artery disease Code(s): I25.10 - ATHSCL HEART DISEASE OF [place] CORONARY ARTERY W/O ANG PCTRS Status: Acute Qualifiers: Coronary Disease-Associated Artery/Lesion type: bypass graft [place] vs. transplanted heart: [place] heart Associated angina: with unstable angina Qualified Code(s): I25.700 - Atherosclerosis of coronary artery bypass graft(s) , unspecified, with unstable angina pectoris Plan: -Patient recovering well -Cardiac rehab planned for outpatient -Continue high dose statin, ASA, Metoprolol (3) Uncontrolled diabetes mellitus Code(s): E11.65 - TYPE 2 DIABETES MELLITUS WITH HYPERGLYCEMIA Status: Chronic Qualifiers: Diabetes mellitus type: type 2 Plan: -HgA1c 9.2 -Patient restarted on home regimen of levemir -Blood sugars have remained well controlled in hospital -ACHS accuchecks -CC diet, HH diet -Levemir 30 SC QAM (4) Depression with anxiety Status: Chronic Plan: -Patient emotionally stable -Continue zoloft -Encourage patient to follow up outpatient with PCP for depression screening post discharge (5) Tobacco abuse Code(s): Z72.0 - TOBACCO USE Status: Chronic Plan: -Patient declined Nicotine patch during hospitalization -Counseled on cessation - Plan Plan: Plan: Discharge home today if cardiovascular surgery agrees with disposition. Patient has remained hemodynamically stable. She continues to get stronger. She will do cardiac rehab as outpatient. <Tarah Moralez - Last Filed: 05/31/17 07:48> Attending Addendum - Attending Addendum I personally evaluated the patient and discussed the management with [ Kirt] I agree with the History, Examination, Assessment and Plan documented above with any addition or exceptions noted below. Stable for discharge per CV surgery. Will do cardiac rehab outpatient. <Chad Mendes - Last Filed: 05/31/17 10:26>
[2017-05-31] MEDS: metFORMIN 500 MG TAB PO SCH (10:35)
[2017-05-31] MEDS: Potassium Chloride 20 MEQ TAB PO SCH (10:35)
[2017-05-31] MEDS: HYDROcodone/Acetaminophen 5/325 mg Tablet PO PRN (10:35)
[2017-05-31] MEDS: Furosemide 40 MG TAB PO SCH (10:36)
[2017-05-31] MEDS: Famotidine 20 MG TAB PO SCH (10:36)
[2017-05-31] MEDS: Aspirin 325 mg Enteric Coated Tablet PO SCH (10:36)
[2017-05-31] MEDS: Lisinopril 10 MG TAB PO SCH (10:36)
[2017-05-31] MEDS: Metoprolol Tartrate 25 MG TAB PO SCH (10:36)
[2017-05-31] MEDS: Insulin Detemir 100 UNITS/ML 30 UNITS in Pre-Filled Syringe 1 EACH SC SCH (10:37)
[2017-05-31] MEDS: Multivitamin W/ Minerals 1 TAB PO SCH (10:37)
[2017-05-31 15:55] VITALS: BP 124/66; TEMP 97.2
--- NOTE | 2017-06-01 14:54 | DIS-2 ---
DATE OF ADMISSION: 05/25/2017 DATE OF DISCHARGE: 05/31/2017 RESIDENT: Tarah Moralez DO ADMITTING ATTENDING: Kristen Hermosillo M.D. DISCHARGE ATTENDING: Chad Mendes M.D. CONSULTANTS: 1. Pulmonology; Dr. Himanshu Thibodeaux. 2. Cardiology; Dr. Miguel. 3. Cardiovascular Surgery, Dr. Franklin. 4. Cardiac rehabilitation. PROCEDURES: 1. Chest x-ray, no acute cardiopulmonary process. 2. EKG, possible left atrial enlargement with left ventricular hypertrophy and repolarization abnormality. PROCEDURES: 1. Cardiac catheterization. Patient found to have an occluded circumflex artery, did not visualize through collaterals, through distal left main of about 50%, proximal circumflex of about 40% prior to its occlusion. She had a ramus of very distal significant stenosis and two small branches. She had a ramus with about 90% stenosis in LAD with about 75%-80% ostial stenosis and plaquing distally. The right coronary artery had about 40% mid stenosis and 50 % more distal stenosis. Left ventricular systolic function was normal/ hyperdynamic. 2. Coronary artery bypass graft x5, good quality, left internal mammary artery to 2.5 mm left anterior descending artery with posterior plaquing. Good quality saphenous vein to the distal right coronary artery 2.5 mm, good quality saphenous vein to high diagonal 1.5 mm distal disease. Good quality saphenous vein to 1.25 to 1.5 distal circumflex past the occlusion. Sequential graft to saphenous vein to the distal ramus proximal diagonal. PRIMARY DIAGNOSES: 1. Status post 5-vessel coronary artery bypass graft. 2. Non-ST elevation myocardial infarction. 3. Severe coronary artery disease. SECONDARY DIAGNOSES: 1. Tobacco abuse. 2. Uncontrolled diabetes mellitus. 3. Depression with anxiety. 4. Hypertension. DISCHARGE MEDICATIONS: 1. Aspirin 325 mg oral daily. 2. Atorvastatin calcium 40 mg oral at bedtime. 3. Furosemide 40 mg oral daily. 4. Metoprolol tartrate 25 mg oral twice daily. 5. Acetaminophen with codeine 1-2 tablet oral every 6 hours as needed. 6. Multivitamin, Centrum, Ultram Women's 1 tablet oral daily. 7. Lisinopril 20 mg orally. 8. Metformin 1000 mg oral twice daily with meals. 9. Zolpidem tartrate 10 mg oral at bedtime as needed. 10. Sertraline 100 mg oral daily. 11. Insulin glargine 30 units subcu every 12 hours. DISCONTINUED MEDICATIONS: 1. Aspirin 81 mg oral daily. 2. Simvastatin 40 mg oral at bedtime. 3. Rosuvastatin calcium 20 mg oral daily. HISTORY OF PRESENT ILLNESS AND HOSPITAL COURSE: This is a 61-year-old with cardiovascular risk factors including smoking half to 1 pack a day, uncontrolled diabetes mellitus, severe hypertension, poorly controlled, and dyslipidemia, who presented after onset of chest pain at approximately 9:00 p.m. the night before admission. In the emergency room, she was noted to have a non-ST elevation myocardial infarction. Her EKG showed only left ventricular hypertrophy with poor R-wave progression. She was taken to the laboratory inspector where she was found to have significant 5-vessel disease. A 5-vessel coronary artery bypass graft was performed on 05/26/2017. Patient was then transferred to ICU, post-CABG where she remained intubated. She was extubated on 05/27/2017 and transferred to the floor. She continued to do well. Patient worked with physical therapy without much difficulty. She remained hemodynamically stable without any complications. Cardiovascular surgery cleared her for discharge on 05/31/2017. She will follow up with cardiac rehab as an outpatient. DISPOSITION: Stable. DISCHARGE INSTRUCTIONS: 1. Location: Home. 2. Diet: Heart healthy, low sodium. 3. Activity: As tolerated. 4. Followup: The patient is set up for outpatient cardiac rehabilitation on at 9:00 a.m. Patient was advised to follow up with primary care physician, Dr. Mendes within 3 days of leaving the hospital. Additionally, she is to follow up with Dr. Franklin her cardiovascular surgeon in [address] Miguel, her primary psychological stress evaluator on 06/08/2017 at 3:00 p.m. The above plan was discussed with the patient. She was in understanding and agreement. LANI
== END 2017-05-31 15:08 | disposition home or self-care (01) | DRG 234 ==
LOC: ERS 23:37 → 2SE 05-25 02:26 → OBSVTOIN 05-25 02:26 → CCU 05-26 13:57 → 2NO 05-28 09:42
PROVIDERS: ADMIT Family Medicine; ATTEND Family Medicine
PROC: 4A023N7 Measurement of Cardiac Sampling and Pressure, Left Heart, Percutaneous Approach (ICD-10-PCS; 2017-05-25)
PROC: B2111ZZ Fluoroscopy of Multiple Coronary Arteries using Low Osmolar Contrast (ICD-10-PCS; 2017-05-25)
PROC: B2151ZZ Fluoroscopy of Left Heart using Low Osmolar Contrast (ICD-10-PCS; 2017-05-25)
PROC: 02100Z9 Bypass Coronary Artery, One Artery from Left Internal Mammary, Open Approach (ICD-10-PCS; principal; 2017-05-26)
PROC: 021309W Bypass Coronary Artery, Four or More Arteries from Aorta with Autologous Venous Tissue, Open Approach (ICD-10-PCS; 2017-05-26)
PROC: 06BQ4ZZ Excision of Left Saphenous Vein, Percutaneous Endoscopic Approach (ICD-10-PCS; 2017-05-26)
PROC: 5A1221Z Performance of Cardiac Output, Continuous (ICD-10-PCS; 2017-05-26)
PROC: 5A1935Z Respiratory Ventilation, Less than 24 Consecutive Hours (ICD-10-PCS; 2017-05-26)
DX: I21.4 Non-ST elevation (NSTEMI) myocardial infarction (principal); E11.65 Type 2 diabetes mellitus with hyperglycemia; I10 Essential (primary) hypertension; I25.10 Atherosclerotic heart disease of native coronary artery without angina pectoris; F17.210 Nicotine dependence, cigarettes, uncomplicated; Z79.4 Long term (current) use of insulin; K21.9 Gastro-esophageal reflux disease without esophagitis; F41.8 Other specified anxiety disorders; Z79.84 Long term (current) use of oral hypoglycemic drugs; Z82.49 Family history of ischemic heart disease and other diseases of the circulatory system; E78.00 Pure hypercholesterolemia, unspecified
CPT/HCPCS: 36415; 36416; 36430; 71010; 80048; 80053; 80061; 82550; 82553; 82805; 83036; 83735; 84100; 84443; 84484; 85025; 85610; 85730; 86850; 86900; 86901; 93005; 93010; 93458; 93798; 94002; 94003; 94150; 94760; 99406; A4216; C1769; J1265; J1642; J1644; J1650; J1815; J1885; J2001; J2250; J2270; J2440; J2704; J2720; J3010; J3370; J3475; J3480; J7050; P9016; S0017; S0028

== ENCOUNTER 2017-09-14 13:40 | Outpatient (CLI) | payer OTHER | END 2017-09-14 13:41 | disposition home or self-care (01) | LOC: BICRAD 13:40 | PROVIDERS: ATTEND Internal Medicine | DX: Z02.71 Encounter for disability determination (principal); Z98.890 Other specified postprocedural states | CPT/HCPCS: 71046 ==

== ENCOUNTER 2019-12-08 13:27 | Inpatient (IN) | payer OTHER, SELFPAY ==
[~2019-12-08 13:27] MED LIST: Iopamidol-370 76% 500 ML 1 ML ONE
[2019-12-08 14:05] LABS: Hemoglobin 12.4 g/dL (12.0-16.0); Mean Corpuscular HGB CONC 32.5 g/dL (32.0-36.0); Mean Corpuscular Hemoglobin 30.3 pg (27.0-31.0); Mean Corpuscular Volume 93.2 fL (78.0-98.0); Mean Platelet Volume 6.8 fL (7.4-10.4); Platelet Count 383 thou/uL (130-400); RBC Distribution Width 12.5 % (11.5-14.5); Red Blood Cell (RBC) Count 4.09 mill/uL (4.20-5.40); White Blood Cell (WBC) Count 10.7 thou/uL (4.8-10.8)
[2019-12-08 14:21] LABS: Band 1 % (5-11); Eosinophils 1 % (0-10); Lymphocytes 56 % (21-51); MDiff Complete? YES; Monocytes 1 % (0-10); Neutrophil 41 % (42-75); Platelet Morphology Comment Appears Adequate; RBC Morphology Normal
--- NOTE | 2019-12-08 14:25 | CT ---
Exam: CT brain PROVIDED CLINICAL HISTORY: Difficulty speaking and right arm numbness and weakness COMPARISON: None FINDINGS: The ventricular system is normal in size and morphology. No evidence for intracranial hemorrhage or mass effect. The extracranial soft tissues and osseous structures demonstrate no evidence for an acute abnormality. There is hypodensity within the low left frontal deep and subcortical white matter with possible loss of person-white differentiation involving the low left frontal cortex in this region. IMPRESSION: No evidence for intracranial hemorrhage or mass effect. Hypodensity involving the left frontal white matter may reflect age-indeterminate ischemic change. Co nsider follow-up MRI. Findings communicated to Dr. Mccray 12/08/2027 2:22 PM.
[2019-12-08 14:37] LABS: ALT (SGPT) 16 U/L (8-55); AST (SGOT) 17 U/L (5-34); Albumin 4.2 g/dL (3.4-4.8); Alkaline Phosphatase 130 U/L (40-110); Anion Gap 16 mmol/L (10-20); BUN (Urea Nitrogen) 11 mg/dL (9.8-20.1); CK (CPK) 126 U/L (29-168); Calc. Creatinine Clearance 0 mL/min (70-130); Calcium 9.6 mg/dL (7.8-10.44); Carbon Dioxide 21 mmol/L (23-31); Chloride 103 mmol/L (98-107); Estimated GFR-MDRD 66; Globulin 3.8 g/dL (2.4-3.5); Glucose 164 mg/dL (80-115); Potassium 3.7 mmol/L (3.5-5.1); Sodium 136 mmol/L (136-145)
[2019-12-08 14:45] LABS: Bilirubin, Total 0.3 mg/dL (0.2-1.2)
[2019-12-08] MEDS ORDERED: Aspirin 325 MG TAB ONE (14:49)
--- NOTE | 2019-12-08 14:51 | CT ---
CT ANGIOGRAM NECK WITH CONTRAST CT ANGIOGRAM BRAIN WITH CONTRAST: DATE: 12/08/2019 HISTORY: 64-year-old female with acute stroke. Dr. Rdz notified Dr. Mccray of the results at 2:49 PM 12/08/2019 TECHNIQUE: After IV contrast injection, arterial bolus chasing technique scan performed from AP window to vertex of head. Coronal and sagittal 3-D MIP reconstructions. FINDINGS: 6 x 7 mm noncalcified pulmonary nodule of anterior segment right upper lobe abutting anterolateral pl eural surface. Sternotomy wires. Brachiocephalic: No stenosis Right subclavian: No stenosis at proximal and mid portions. Left subclavian: No stenosis Right vertebral: Origin difficult to evaluate. Diminutive. No occlusion or acquired short segment hig h-grade stenosis identified involving cervical and intracranial components. Left vertebral: Dominant. Origin difficult to evaluate. No occlusion or acquired short segment high-g rade stenosis identified involving cervical and intracranial components. Right common carotid: No significant stenosis. Left common carotid: No significant stenosis. Right external carotid: Cortical stenosis at origin. Right internal carotid: Noncalcified plaque causing mild stenosis at proximal vessel. Rest of cervica l portion and right carotid siphon shows no high-grade stenosis. Left internal carotid: Noncalcified plaque from origin through proximal. 2 cm distal to the origin, t here is a extremely severe, critical stenosis of approximately 90-99%. Superior to that, the distal cervical and carotid siphon demonstrate no definite high-grade stenosis. Bilateral MCA: No thrombosis or occlusion or high-grade stenosis of M1 segments. Basilar: No high-grade stenosis. Bilateral POLE SANDER OPERATOR: Diminutive right P1 segment. Patent right posterior communicating artery. Left P1 segm ent and bilateral P2 segments are patent. Bilateral anterior cerebral: At least mild stenosis at origin of right A1 segment. Left A1 segment an d bilateral A2 segments demonstrate no high-grade stenosis. IMPRESSION: 1. Critical stenosis at proximal left internal carotid artery. 2. No M1 segment middle cerebral artery thrombosis or occlusion.
[2019-12-08 14:58] LABS: PTT 26.9 SEC (22.9-36.1); Prothrombin Time 12.8 sec (12.0-14.7)
[2019-12-08 16:51] VITALS: BMI 26.0
[2019-12-08] MEDS ORDERED: Guaifenesin DM 100-10/5 ML UDCUP PO PRN (16:55)
[2019-12-08] MEDS ORDERED: Bisacodyl 10 MG SUPP PR PRN (16:55)
[2019-12-08] MEDS ORDERED: Dextrose 50% Abboject 50 ML SYRINGE SLOW IVP PRN (16:55)
[2019-12-08] MEDS ORDERED: Ondansetron PF 4 MG/2 ML Vial IVP PRN (16:55)
[2019-12-08] MEDS ORDERED: Dextrose 5% in Water 1,000 ML IV PRN (16:55)
[2019-12-08] MEDS ORDERED: Senokot S 8.6-50 MG TAB PO PRN (16:55)
--- NOTE | 2019-12-08 18:38 | HP ---
REASON FOR ADMISSION: Acute CVA with right upper extremity paresis and right facial palsy. HISTORY OF PRESENTING ILLNESS: Patient was in [employer] shopping to get money order in the morning. She was not able to get the right words out. She was unable to form sentences. Patient managed to get out of the place, but started to feel her right upper extremity being limp and she could not control it. Essentially, the right upper extremity would not hold if she tried to lift it. This was particularly worse for the thumb and forefinger, which felt very woody. Patient was able to move her right lower extremity well. Patient was a stroke alert in the ER and has had CT angio of brain and neck and CT brain. The CT angio brain shows critical stenosis of proximal left internal carotid artery. Patient's NIH was rapidly improving in the ER. No tPA was given, although she was in the window. PAST MEDICAL AND SURGICAL HISTORY: History of coronary artery disease; CABG for 5-vessel disease done in April of 2017; hypertension; dyslipidemia; and diabetes mellitus, type 2. No prior history of CVA. CURRENT MEDICATIONS: 1. Metformin 500 mg twice daily. 2. Atorvastatin 40 mg p.o. at bedtime. 3. Hydralazine 10 mg daily. 4. Ecotrin 81 mg daily. 5. Sleep-Aid at bedtime. 6. Zoloft 25 mg p.o. daily. 7. Lantus 25 units subcu q.a.m. and 35 units subcu q.p.m. ALLERGIES: NO KNOWN DRUG ALLERGIES. PERSONAL HISTORY: Quit smoking in 2016, prior to the CABG. Does not abuse alcohol or drugs. She lives alone. FAMILY HISTORY: Significant for sister and grandfather with diabetes and multiple family members having high blood pressure. CODE STATUS: Full. Power of transactional attorney is her sister, Ms. Pamela Liu. REVIEW OF SYSTEMS: CONSTITUTIONAL: Negative for weight loss or gain, ability to conduct usual activities. SKIN: Negative for rash, itching. EYES: Negative for double vision, pain. ENT/MOUTH: Negative for nose bleeding, neck stiffness, pain, tenderness. CARDIOVASCULAR: Negative for palpitations, dyspnea on exertion, orthopnea. RESPIRATORY: Negative for shortness of breath, wheezing, cough, hemoptysis, fever or night sweats. GASTROINTESTINAL: Negative for poor appetite, abdominal pain, heartburn, nausea , vomiting, constipation, or diarrhea. GENITOURINARY: Negative for urgency, frequency, dysuria, nocturia. MUSCULOSKELETAL: Negative for pain, swelling. NEUROLOGIC/PSYCHIATRIC: Negative for anxiety, depression. ALLERGY/IMMUNOLOGIC: Negative for skin rash, bleeding tendency. PHYSICAL EXAMINATION: GENERAL: Patient is a 64-year-old female, who is currently not in any acute distress. VITAL SIGNS: Blood pressure 154/84, pulse 84 per minute, respiratory rate is 18 per minute, temperature 99.2 degrees Fahrenheit, and saturating 98% on room air. NECK: Supple. No elevated JVD. HEENT: Eyes, extraocular muscles intact. Pupils reacting to light. Oral cavity, mucous membranes are moist. No exudates or congestion. CARDIOVASCULAR SYSTEM: S1-S2 heard. Regular rhythm. RESPIRATORY: Air entry 1+ bilateral. No rales or rhonchi. ABDOMEN: Soft. Bowel sounds heard. No tenderness, rigidity, or guarding. EXTREMITIES: No peripheral edema or calf tenderness. VASCULAR SYSTEM: Peripheral pulses 1+ bilateral. No ischemic ulcerations or gangrene. CENTRAL NERVOUS SYSTEM: Patient appears to have right facial nerve palsy with flattening of nasolabial fold. No other cranial nerve deficits noted. Motor system, strength is 2/5 to 3/5 in right upper extremity. Reflexes are 2+, bilateral. Babinski is downgoing, bilateral. Cerebellar signs are intact. PSYCHIATRIC SYSTEM: Patient's mood is euthymic. No hallucinations or delusions. LABORATORY DATA: CT brain without contrast done on arrival showed no acute intracranial hemorrhage or mass effect. There was hypodensity involving the left frontal white matter, may reflect age-indeterminate ischemic change. CT angio of brain and neck done showed critical stenosis of proximal left internal carotid artery. No M1 segment middle MCA thrombosis or occlusion seen. There was incidental finding of 6.6 x 7 mm noncalcified pulmonary nodule in the anterior segment of right upper lobe. H and H 12 and 38, platelet count is 383 with 41% neutrophils, 1% bands and 56% lymphocytes, MCV is 93, and white count of 10. PT/INR, PTT within normal limits. BUN 11, creatinine 1.0. Serum glucose 164. Serum bicarb 21. Total bilirubin 0.3, alk phos 130, AST and ALT 17 and 16, albumin is 4.2. LABORATORY: EKG done shows sinus tach at 104 beats per minute. There is T-wave inversion seen in anterolateral leads V3 to V6 and lead II and lead III. QRS duration was 80 milliseconds, corrected QT 449 milliseconds. CLINICAL IMPRESSION AND PLAN: Patient will be admitted to telemetry for acute right upper extremity paresis with critical stenosis of left proximal internal carotid artery. As patient takes Ecotrin, we will switch over to Aggrenox now. Plavix will be held for now as patient might go for carotid surgery. If not, we will switch over to Plavix in the morning. We will change Lipitor to Crestor 20 mg daily. We will continue Norvasc, Lantus 25 units subcu twice daily for now. Patient will be on stroke unit. Neurology consultation with Dr. Solomon and Cardiothoracic Surgery consultation with Dr. Sanchez, who is on-call will be obtained. MRI without contrast for the brain in the morning to better delineate the frontal lobe area, which was abnormal on the CAT scan. Echo with 2D Doppler for LV function will be obtained as well. We will continue to closely monitor her on stroke unit. Stroke Team has been consulted as well. Job ID: [id number] [facility]ITAL[facility]
[2019-12-08] MEDS: Aggrenox 200-25mg CAP PO SCH (20:37)
[2019-12-08] MEDS: Famotidine 20 MG TAB PO SCH (20:37)
[2019-12-08] MEDS: Insulin Glargine 25 UNITS in Pre-Filled Syringe SC SCH (20:37)
[2019-12-08] MEDS: Rosuvastatin 20 MG TAB PO SCH (20:37)
[2019-12-08] MEDS ORDERED: Atorvastatin Calcium 40 MG TAB PO SCH (21:00)
[2019-12-09 05:03] LABS: #Eosinphils 0.1 thou/uL (0.0-0.7); #Lymphocytes 3.6 thou/uL (1.20-3.40); #Monocytes 0.6 thou/uL (0.11-0.59); #Neutrophils 3.4 thou/uL (1.40-6.50); %Basophils 0.4 % (0.0-1.0); %Eosinophils 1.1 % (0.0-10.0); %Lymphocytes 46.7 % (21.0-51.0); %Monocytes 7.5 % (0.0-10.0); %Neutrophils 44.3 % (42.0-75.0); Hemoglobin 11.7 g/dL (12.0-16.0); Mean Corpuscular Volume 93.5 fL (78.0-98.0); Mean Platelet Volume 6.9 fL (7.4-10.4); Platelet Count 331 thou/uL (130-400); RBC Distribution Width 12.6 % (11.5-14.5); Red Blood Cell (RBC) Count 3.92 mill/uL (4.20-5.40); White Blood Cell (WBC) Count 7.7 thou/uL (4.8-10.8)
[2019-12-09 05:10] LABS: Anion Gap 15 mmol/L (10-20); BUN (Urea Nitrogen) 13 mg/dL (9.8-20.1); Calc. Creatinine Clearance 81 mL/min (70-130); Calcium 8.9 mg/dL (7.8-10.44); Carbon Dioxide 22 mmol/L (23-31); Cardiac Risk 5.8 (Less than 4.5); Chloride 104 mmol/L (98-107); Cholesterol 133 mg/dl (< 200 Desired); Estimated GFR-MDRD 84; Glucose 148 mg/dL (80-115); HDL Cholesterol 23 mg/dL (>60 Neg Risk); LDL Cholesterol, Calculated 87 mg/dL; Potassium 4.1 mmol/L (3.5-5.1); Sodium 137 mmol/L (136-145); Triglycerides 114 mg/dL (Less than 150)
[2019-12-09] MEDS: HumaLOG 300 UNITS/3 ML VIAL SC PRN ×3 (05:21→17:16)
--- NOTE | 2019-12-09 09:29 | MRI ---
MRI BRAIN NONCONTRAST: DATE: 12/09/2019 HISTORY: 64-year-old female status post acute stroke. Dysarthria. Right upper extremity weakness and hypesthes ia (numbness). FINDINGS: There are several tiny and small foci of restricted diffusion scattered in left cerebrum, including a few in left occipital (watershed zone between left MCA and left BRANCH MANAGER territories),left centrum semiovale and left precentral gyrus (motor cortex) (watershed zone between left MCA and left SYMONE terr itories). There is an approximately 3 x 1.5 cm patchy region of intra-axial T2 hyperintensity in the left later al lower frontal lobe. It has T2 shine through on the DWI, but no restricted diffusion. No evidence of recent or remote major intra-axial hemorrhage. Ventricles are normal in size and confi guration. No mass effect, midline shift, or extra-axial fluid collection. Partially empty sella. IMPRESSION: 1) several tiny acute watershed zone infarctions in the left cerebral hemisphere. 2) the left inferior lateral frontal lobe lesion is not an acute infarction. It could represent a lat e subacute infarction or an old infarction. There is a smaller possibility that this could represent a neoplasm. Recommend MRI of brain with contrast.
[2019-12-09] MEDS: Amlodipine 10 MG TAB PO SCH (09:30)
[2019-12-09] MEDS: Enoxaparin Sodium 40 MG/0.4 ML SYRINGE SC SCH (09:30)
[2019-12-09] MEDS: Citalopram 20 MG TAB PO SCH (09:30)
[2019-12-09] MEDS: Insulin Glargine 25 UNITS in Pre-Filled Syringe SC SCH ×2 (09:30→20:45)
[2019-12-09] MEDS: Famotidine 20 MG TAB PO SCH ×2 (09:30→20:45)
[2019-12-09] MEDS: Aggrenox 200-25mg CAP PO SCH ×2 (09:30→20:45)
--- NOTE | 2019-12-09 11:59 | PDOC.HOSPP ---
- Subjective Encounter Date: 12/09/19 Encounter Time: 10:30 Subjective: still has difficulty moving her right UE, no weakness or sensory issues in other extremities had her breakfast, no choking no headache or nausea - Objective Vital Signs & Weight: Vital Signs (12 hours) Temp Pulse Pulse Pulse Resp BP BP 12/09/19 11:44 97.9 F 83 16 12/09/19 09:45 79 141/84 H 12/09/19 09:44 79 86 141/84 H 12/09/19 09:30 82 130/70 12/09/19 08:50 12/09/19 07:51 98.1 F 82 16 12/09/19 04:00 98.4 F 86 16 BP BP Pulse Ox 12/09/19 11:44 144/75 H 96 12/09/19 09:45 12/09/19 09:44 146/88 H 12/09/19 09:30 12/09/19 08:50 97 12/09/19 07:51 130/70 97 12/09/19 04:00 117/69 97 Weight Weight 166 lb 1.6 oz I&O: 12/08/19 12/09/19 12/10/19 06:59 06:59 06:59 Intake Total 670 Balance 670 Result Diagrams: 12/09/19 04:25 12/09/19 04:25 Additional Labs: Accuchecks 12/09/19 12/09/19 12/08/19 10:45 04:55 20:17 POC Glucose 204 H 163 H 185 H 12/08/19 14:15 POC Glucose 165 H Hospitalist ROS - Medication Medications: Active Medications Generic Name Dose Route Start Last Admin Trade Name Freq PRN Reason Stop Dose Admin Amlodipine Besylate 10 mg 12/09/19 09:00 12/09/19 09:30 Norvasc PO 10 mg DAILY BOAZ Administration Citalopram Hydrobromide 20 mg 12/09/19 09:00 12/09/19 09:30 Celexa PO 20 mg DAILY BOAZ Administration Dipyridamole/Aspirin 1 cap 12/08/19 21:00 12/09/19 09:30 Aggrenox PO 1 cap BID BOAZ Administration Enoxaparin Sodium 40 mg 12/09/19 09:00 12/09/19 09:30 Lovenox SC 40 mg 0900 BOAZ Administration Famotidine 20 mg 12/08/19 21:00 12/09/19 09:30 Pepcid PO 20 mg BID BOAZ Administration Insulin Glargine 25 units/ 0.25 mls @ 0 mls/hr 12/08/19 21:00 12/09/19 09:30 Miscellaneous Medication SC 0.25 mls BID BOAZ Administration Insulin Human Lispro 0 units 12/08/19 16:55 12/09/19 11:20 Humalog SC 4 unit .MODERATE SLIDING SC PRN Administration Moderate Correctional Scale Rosuvastatin Calcium 40 mg 12/08/19 21:00 12/08/19 20:37 Crestor PO 40 mg HS BOAZ Administration - Exam General Appearance: awake alert Eye: PERRL, anicteric sclera ENT: no oropharyngeal lesions, moist mucosa Neck: supple, no JVD Heart: RRR, no gallops Respiratory: no wheezes, no rales Gastrointestinal: soft, non-tender, non-distended, normal bowel sounds Extremities: no cyanosis, no edema Neurological - other findings: right upper 3/5 strength Psychiatric: normal affect, A&O x 3 Hosp A/P (1) Acute CVA (cerebrovascular accident) Code(s): I63.9 - CEREBRAL INFARCTION, UNSPECIFIED Status: Acute (2) DM type 2 (diabetes mellitus, type 2) Status: Chronic Qualifiers: Diabetes mellitus manager terminal insulin use: with manager terminal use Diabetes mellitus complication status: without complication Qualified Code(s): E11.9 - Type 2 diabetes mellitus without complications; Z79.4 - senior care (current) use of insulin (3) Dyslipidemia Code(s): E78.5 - HYPERLIPIDEMIA, UNSPECIFIED Status: Chronic (4) HTN (hypertension) Code(s): I10 - ESSENTIAL (PRIMARY) HYPERTENSION Status: Chronic Qualifiers: Hypertension type: essential hypertension Qualified Code(s): I10 - Essential (primary) hypertension (5) Coronary artery disease Code(s): I25.10 - ATHSCL HEART DISEASE OF [place] CORONARY ARTERY W/O ANG PCTRS Status: Chronic Qualifiers: Coronary Disease-Associated Artery/Lesion type: bypass graft [place] vs. transplanted heart: [place] heart - Plan MRI wo contrast shows watershed infarcts in left cerebral hemisphere, has left inf lateral frontal lesion will order MRI with contrast to check for left frontal lesion quit smoking in 2017 when she had cabg, has right upper lobe non calcified 6-8 mm nodule on aggrenox, crestor, norvasc, celexa, lantus will likely need BOLIVAR and event monitor in view of water shed infarcts, no arrhythmias on telemetry await TTE results she has ambulated in hallway, will arrange outpt rehab or HH with PT critical left carotid stenosis, await CTS opinion hemostable, neurologically no further worsening after admission
[2019-12-09] MEDS: Acetaminophen 325 MG TAB PO PRN ×2 (12:38→20:45)
--- NOTE | 2019-12-09 13:51 | CON ---
DATE OF CONSULTATION: 12/09/2019 REASON FOR CONSULTATION: Stroke . HISTORY OF PRESENT ILLNESS: Ms. Liu is a 64-year-old female with history significant for diabetes and hypertension, who presented to the emergency room with right facial droop and right upper extremity weakness. Per patient, she was walking and doing shopping in the [place] and all of a sudden, she was dazed,and it was difficult for her to get the words out. She was unable to form sentences and she also felt that her right upper extremity became numb and she was unable to control it. The patient was a stroke alert in the emergency room and a CT angiogram of brain and head was done. The CT angio of the brain showed critical stenosis of the proximal left internal carotid artery. Her NIH scale improved in the emergency room, so tPA was not given. The patient denies nausea, vomiting, headache, dizziness, vertigo, loss of vision, loss of consciousness, chest pain or abdominal pain associated with the episode. The symptoms were much improved in the emergency room. PAST MEDICAL HISTORY: Coronary artery disease, hypertension, hyperlipidemia, and diabetes mellitus type 2. PAST SURGICAL HISTORY: CABG for 5-vessel. CURRENT MEDICATIONS: 1. Metformin 500 mg twice daily. 2. Atorvastatin 40 mg at bedtime. 3. Hydralazine 10 mg daily. 4. Ecotrin 81 mg daily as a sleep aid at bedtime. 5. Zoloft 25 mg daily. 6. Lantus insulin 25 units subcutaneously q.a.m. and 35 units subcutaneously q.p.m. ALLERGIES: NO KNOWN DRUG ALLERGIES. SOCIAL HISTORY: The patient lives alone. She denies smoking or illegal drug use. FAMILY HISTORY: Significant for sister and grandmother had diabetes and most family members had hypertension. REVIEW OF SYSTEMS: All 10 systems were reviewed and were negative except pertinent positive, negative mentioned in HPI. - Vital Signs & Weight: Vital Signs (12 hours) Temp Pulse Pulse Pulse Resp BP BP 12/09/19 11:44 97.9 F 83 16 12/09/19 09:45 79 141/84 H 12/09/19 09:44 79 86 141/84 H 12/09/19 09:30 82 130/70 12/09/19 08:50 12/09/19 07:51 98.1 F 82 16 12/09/19 04:00 98.4 F 86 16 BP BP Pulse Ox 12/09/19 11:44 144/75 H 96 12/09/19 09:45 12/09/19 09:44 146/88 H 12/09/19 09:30 12/09/19 08:50 97 12/09/19 07:51 130/70 97 12/09/19 04:00 117/69 97 Weight Weight 166 lb 1.6 oz I&O: 12/08/19 12/09/19 12/10/19 06:59 06:59 06:59 Intake Total 670 Balance 670 Result Diagrams: 12/09/19 04:25 12/09/19 04:25 Additional Labs: Accuchecks 12/09/19 12/09/19 12/08/19 10:45 04:55 20:17 POC Glucose 204 H 163 H 185 H 12/08/19 14:15 POC Glucose 165 H - Medication Medications: Active Medications Generic Name Dose Route Start Last Admin Trade Name Freq PRN Reason Stop Dose Admin Amlodipine Besylate 10 mg 12/09/19 09:00 12/09/19 09:30 Norvasc PO 10 mg DAILY BOAZ Administration Citalopram Hydrobromide 20 mg 12/09/19 09:00 12/09/19 09:30 Celexa PO 20 mg DAILY BOAZ Administration Dipyridamole/Aspirin 1 cap 12/08/19 21:00 12/09/19 09:30 Aggrenox PO 1 cap BID BOAZ Administration Enoxaparin Sodium 40 mg 12/09/19 09:00 12/09/19 09:30 Lovenox SC 40 mg 0900 BOAZ Administration Famotidine 20 mg 12/08/19 21:00 12/09/19 09:30 Pepcid PO 20 mg BID BOAZ Administration Insulin Glargine 25 units/ 0.25 mls @ 0 mls/hr 12/08/19 21:00 12/09/19 09:30 Miscellaneous Medication SC 0.25 mls BID BOAZ Administration Insulin Human Lispro 0 units 12/08/19 16:55 12/09/19 11:20 Humalog SC 4 unit .MODERATE SLIDING SC PRN Administration Moderate Correctional Scale Rosuvastatin Calcium 40 mg 12/08/19 21:00 12/08/19 20:37 Crestor PO 40 mg HS BOAZ Administration - Exam General Appearance: awake alert Eye: PERRL, anicteric sclera ENT: no oropharyngeal lesions, moist mucosa Neck: supple, no JVD Heart: RRR, no gallops Respiratory: no wheezes, no rales Gastrointestinal: soft, non-tender, non-distended, normal bowel sounds Extremities: no cyanosis, no edema NEUROLOGIC: Mental status, the patient is alert and oriented to person, place, and time. Motor, muscle tone and bulk are normal. Strength 5/5 in the left upper and lower extremity and 4/5 in the right upper and lower extremity. Sensory intact. Reflexes 2+ bilaterally. Cranial nerves 2 through 12 intact today except 7, right facial droop. Cerebellar intact. Reflexes 2+ bilaterally. Gait are not tested due to patient's safety reasons. DATA REVIEWED: I reviewed the CT scan, which did not reveal any acute intracranial pathology. There was hyperdensity involving the left frontal white matter, which shows age-indeterminate ischemic change. CT angiogram of the brain and neck was showed critical stenosis of the proximal left cerebral artery. ASSESSMENT AND PLAN: Ms. Bronwyn Liu consulted for stroke. Consider switching to Aggrenox as the patient already had stroke on Ecotrin. Continue statin for secondary stroke or high-intensity statin for secondary stroke prevention. Permissive control of blood pressure at this time. Neuro checks every [address] angiogram showed critical stenosis of the left proximal internal carotid artery. Consider Vascular Surgery input. Recommend MRI of the brain to rule out acute intracranial pathology. A 2D echocardiography for rule out cardioembolic source. Telemetry and carotid Dopplers to rule out significant stenosis in the neck. Continue home medications. Continue medical management per primary team. Further recommendations depends on the results of the testing. We will continue to follow. Thank you for the consult. Job ID: [id number] [facility]
--- NOTE | 2019-12-09 14:47 | MRI ---
MRI brain with contrast: DATE: 12/09/2019 Time: 2:25 PM HISTORY: 64-year-old female with acute stroke plus brain lesion of uncertain etiology in left frontal lobe. FINDINGS: The recently described 3 x 1.5 cm patchy intra-axial T2 hyperintensity in the left lateral lower fron lila lobe demonstrates strong heterogeneous enhancement. It has a geographic pattern of enhancement which is approximately 2.5 x 2 x 1.2 cm. There is a similar appearing but much smaller focus of intra-axial enhancement involving the left occ ipital lobe, measuring approximately 1 x 1.5 x 1.5 cm. This corresponds to one of the occipital lesions with restricted diffusion demonstrated on the noncontrast study. There are a few punctate 2 mm foci of superficial cortical enhancement involving cortical surface of the left middle frontal gyrus. IMPRESSION: 1. Moderate sized geographic enhancing left lower lateral frontal intra-axial lesion. 2. Small focal left occipital enhancing intra-axial lesion. 3. Several tiny 1 or 2 mm foci of enhancement in the left upper frontal gyri cortex. 4. All of these enhancing lesions on the left are favored to represent acute and subacute infarctions (in addition to the acute watershed zone tiny infarctions demonstrated on the noncontrast MRI earlier today). Malignant neoplastic process is less likely, but not ruled out. Therefore, follow-up MRI of brain with and without contrast is recommended in 3 months.
--- NOTE | 2019-12-09 18:55 | CON ---
DATE OF CONSULTATION: HISTORY OF PRESENT ILLNESS: This is a 64-year-old female who presented yesterday with acute onset of severe weakness in her right arm and hand, associated with some expressive an aphasia. She was found to have a high-grade left internal carotid artery stenosis about 2 cm above the carotid bifurcation, associated with an MRI showing watershed infarcts on the left and possibly in the frontal lobe, although this was less clear per the report. She has had improvement, normal in her speech, but she continues to have severe weakness in her right hand, although she can squeeze relatively well with her long index and small finger, and the index finger and thumb do not work very well. She has mild weakness of the upper part of the right arm. Her right leg, she states she is able to ambulate. PAST MEDICAL HISTORY: Significant for: 1. Hypertension. 2. Diabetes mellitus. 3. Dyslipidemia. 4. Prior coronary artery disease with multivessel coronary artery bypass grafting in 2017 x5. PAST SURGICAL HISTORY: Otherwise negative. SOCIAL HISTORY: She has not smoked since 2017. She lives alone, is not presently working. The patient's medical care is through [facility]. Her novelty dipper is Dr. Miguel; however, she has not seen Dr. Miguel since her heart surgery and I did her coronary artery bypass grafting and saw her on one occasion and she was not seen again after that. MEDICATIONS: Include: 1. Metformin 500 b.i.d. 2. Atorvastatin 40 nightly. 3. Hydralazine. 4. Ecotrin 81 a day. 5. Zoloft 25 a day. 6. Lantus insulin 25 every morning and 35 every evening. ALLERGIES: NO KNOWN ALLERGIES. PHYSICAL EXAMINATION: GENERAL: Alert and cooperative lady. VITAL SIGNS: Blood pressure 140/80, heart rate 79. NECK: No carotid bruits. LUNGS: Clear to auscultation. CARDIAC: Regular rate and rhythm with a systolic murmur in the left lower sternal border. ABDOMEN: Soft and nontender. EXTREMITIES: No peripheral edema. Good pedal pulses. She has noted some fender mechanic in the right hand, but overall weakness in the right upper extremity. NEUROLOGIC: Her speech appears normal at this time. Her right lower extremity strength appears intact. ASSESSMENT AND PLAN: I have reviewed her CTA showing a high-grade stenosis, but of note, she has no plaque formation in any of her great vessels. I am concerned this could have possibly been an embolic event from the heart and I have reviewed the transthoracic echo without full report available on it, but I agree that probably a BOLIVAR may be appropriate prior to intervention. Job ID: [id number]
--- NOTE | 2019-12-09 19:10 | CON ---
DATE OF CONSULTATION: HISTORY OF PRESENT ILLNESS: The patient is a 64-year-old woman who presented with acute onset of right arm weakness and difficulty speaking. The patient has a history of coronary artery disease. In 2017, she underwent a cardiac catheterization. She was found to have severe 3-vessel coronary artery disease. She subsequently underwent a coronary artery bypass graft surgery. The patient states she has been compliant with her medications. She was in her usual state of health when she suddenly felt weakness in the right arm and had difficulty speaking. The patient denies having any chest discomfort or dyspnea. PAST MEDICAL HISTORY: 1. Coronary artery disease. 2. Diabetes mellitus. 3. Hypertension. 4. Dyslipidemia. PAST SURGICAL HISTORY: 1. Tubal ligation. 2. Coronary artery bypass graft surgery x 5. MEDICATIONS ON ADMISSION: See nursing list. ALLERGIES: NO KNOWN DRUG ALLERGIES. FAMILY HISTORY: Positive family history of coronary artery disease. REVIEW OF SYSTEMS: Ten-point system otherwise unremarkable. No history of easy bruising or bleeding. PHYSICAL EXAMINATION: GENERAL: This is a well-developed woman, in no acute distress. VITAL SIGNS: With a blood pressure of 144/75. NECK: No jugular venous distention. LUNGS: Clear to auscultation. HEART: Regular rate and rhythm. Normal S1 and S2. A 1/6 systolic murmur. ABDOMEN: Nondistended. EXTREMITIES: No edema. VASCULAR: Radial pulses are 2+. NEUROLOGIC: There is diminished strength in her right upper extremity. LABORATORY RESULTS: Sodium 137, potassium 4.1, chloride 104, bicarbonate 22, BUN 13, creatinine 0.8, and glucose 148. Hemoglobin 7.7, hematocrit 11.4, hematocrit 36.6, and platelets are 331. EKG revealed sinus tachycardia with an ST-T wave abnormality, suggestive of ischemia. IMPRESSION: 1. Cerebrovascular accident. 2. History of coronary artery bypass surgery. 3. Diabetes mellitus. 4. Hypertension. 5. Dyslipidemia. PLAN: This patient presents with acute cerebrovascular accident. From a cardiac standpoint, she is on appropriate medication. She is being treated with Aggrenox. She has been found to have severe carotid artery disease. The patient is undergoing evaluation by CV Surgery. We will follow this patient with you through her hospitalization. Job ID: [id number] [facility]TDD
[2019-12-09] MEDS: Rosuvastatin 20 MG TAB PO SCH (20:45)
[2019-12-10] MEDS: HumaLOG 300 UNITS/3 ML VIAL SC PRN ×3 (05:45→16:51)
[2019-12-10] MEDS: Amlodipine 10 MG TAB PO SCH (09:12)
[2019-12-10] MEDS: Citalopram 20 MG TAB PO SCH (09:12)
[2019-12-10] MEDS: Aggrenox 200-25mg CAP PO SCH ×2 (09:12→20:49)
[2019-12-10] MEDS: Enoxaparin Sodium 40 MG/0.4 ML SYRINGE SC SCH (09:13)
[2019-12-10] MEDS: Insulin Glargine 25 UNITS in Pre-Filled Syringe SC SCH ×2 (09:13→20:49)
[2019-12-10] MEDS: Famotidine 20 MG TAB PO SCH ×2 (09:13→20:49)
--- NOTE | 2019-12-10 11:22 | PDOC.HOSPP ---
- Subjective Encounter Date: 12/10/19 Encounter Time: 09:45 Subjective: still has right UE weakness, no other weakness is able to ambulate and eat well no c/o palpitations or chest pain - Objective Vital Signs & Weight: Vital Signs (12 hours) Temp Pulse Resp BP Pulse Ox 12/10/19 09:12 86 12/10/19 08:00 98.1 F 86 16 117/70 97 12/10/19 04:00 98.6 F 73 16 119/72 97 12/10/19 00:00 98.1 F 72 16 102/60 98 Weight Weight 166 lb 1.6 oz I&O: 12/09/19 12/10/19 12/11/19 06:59 06:59 06:59 Intake Total 670 990 480 Output Total 1 Balance 670 989 480 Result Diagrams: 12/09/19 04:25 12/09/19 04:25 Additional Labs: Accuchecks 12/10/19 12/10/19 12/09/19 10:44 05:30 20:01 POC Glucose 180 H 157 H 255 H 12/09/19 16:47 POC Glucose 206 H Hospitalist ROS - Medication Medications: Active Medications Generic Name Dose Route Start Last Admin Trade Name Freq PRN Reason Stop Dose Admin Acetaminophen 650 mg 12/08/19 16:55 12/09/19 20:45 Tylenol PO 650 mg Q4H PRN Administration Headache/Fever/Mild Pain (1-3) Citalopram Hydrobromide 20 mg 12/09/19 09:00 12/10/19 09:12 Celexa PO 20 mg DAILY BOAZ Administration Dipyridamole/Aspirin 1 cap 12/08/19 21:00 12/10/19 09:12 Aggrenox PO 1 cap BID BOAZ Administration Enoxaparin Sodium 40 mg 12/09/19 09:00 12/10/19 09:13 Lovenox SC 40 mg 0900 BOAZ Administration Famotidine 20 mg 12/08/19 21:00 12/10/19 09:13 Pepcid PO 20 mg BID BOAZ Administration Insulin Glargine 25 units/ 0.25 mls @ 0 mls/hr 12/08/19 21:00 12/10/19 09:13 Miscellaneous Medication SC 0.25 mls BID BOAZ Administration Insulin Human Lispro 0 units 12/08/19 16:55 05/16/20 10:59 Humalog SC 2 unit .MODERATE SLIDING SC PRN Administration Moderate Correctional Scale Rosuvastatin Calcium 40 mg 12/08/19 21:00 12/09/19 20:45 Crestor PO 40 mg HS BOAZ Administration - Exam General Appearance: awake alert Eye: PERRL, anicteric sclera ENT: no oropharyngeal lesions, moist mucosa Neck: supple, no JVD Heart: RRR, no murmur Respiratory: no wheezes, no rales Gastrointestinal: soft, non-tender, non-distended, normal bowel sounds Extremities: no cyanosis, no edema Neurological - other findings: right UE paresis 3/5 strength Psychiatric: normal affect, A&O x 3 Hosp A/P (1) Acute CVA (cerebrovascular accident) Code(s): I63.9 - CEREBRAL INFARCTION, UNSPECIFIED Status: Acute (2) Carotid stenosis, left Code(s): I65.22 - OCCLUSION AND STENOSIS OF LEFT CAROTID ARTERY Status: Acute (3) DM type 2 (diabetes mellitus, type 2) Status: Chronic Qualifiers: Diabetes mellitus termite control servicer insulin use: with termite control servicer use Diabetes mellitus complication status: without complication Qualified Code(s): E11.9 - Type 2 diabetes mellitus without complications; Z79.4 - nursing home (current) use of insulin (4) Dyslipidemia Code(s): E78.5 - HYPERLIPIDEMIA, UNSPECIFIED Status: Chronic (5) HTN (hypertension) Code(s): I10 - ESSENTIAL (PRIMARY) HYPERTENSION Status: Chronic Qualifiers: Hypertension type: essential hypertension Qualified Code(s): I10 - Essential (primary) hypertension (6) Coronary artery disease Code(s): I25.10 - ATHSCL HEART DISEASE OF [place] CORONARY ARTERY W/O ANG PCTRS Status: Chronic Qualifiers: Coronary Disease-Associated Artery/Lesion type: bypass graft [place] vs. transplanted heart: [place] heart - Plan MRI wo contrast shows watershed infarcts in left cerebral hemisphere, has left inf lateral frontal lesion MRI with contrast confirms infarcts in left frontal lesion Will need BOLIVAR, transthoracic echo did not reveal thrombus, has good ef Likely carotid endarterectomy on Thursday or thursday after BOLIVAR results are available, d/w . quit smoking in 2017 when she had cabg, has right upper lobe non calcified 6-8 mm nodule on aggrenox, crestor, celexa, lantus she has ambulated in [facility], neurologically no further worsening after admission I have full updates to patient and she is aware of plans including carotid surgery
[2019-12-10] MEDS: Acetaminophen 325 MG TAB PO PRN ×2 (12:21→20:49)
[2019-12-10] MEDS: Rosuvastatin 20 MG TAB PO SCH (20:49)
[2019-12-11] MEDS: HumaLOG 300 UNITS/3 ML VIAL SC PRN ×2 (06:37→10:34)
--- NOTE | 2019-12-11 09:03 | PDOC.HOSPP ---
- Subjective Encounter Date: 12/11/19 Subjective: Feels better - Objective Vital Signs & Weight: Vital Signs (12 hours) Temp Pulse Resp BP Pulse Ox 12/11/19 07:08 98.2 F 79 14 115/80 97 12/11/19 04:40 97.5 F L 80 16 121/68 98 12/11/19 00:24 98 F 78 14 103/63 96 Weight Weight 166 lb 1.6 oz I&O: 12/10/19 12/11/19 12/12/19 06:59 06:59 06:59 Intake Total 990 840 Output Total 1 Balance 989 840 Result Diagrams: 12/09/19 04:25 12/09/19 04:25 Additional Labs: Accuchecks 12/11/19 12/10/19 12/10/19 05:53 20:33 16:45 POC Glucose 174 H 247 H 189 H 12/10/19 10:44 POC Glucose 180 H Hospitalist ROS - Medication Medications: Active Medications Generic Name Dose Route Start Last Admin Trade Name Freq PRN Reason Stop Dose Admin Acetaminophen 650 mg 12/08/19 16:55 12/10/19 20:49 Tylenol PO 650 mg Q4H PRN Administration Headache/Fever/Mild Pain (1-3) Citalopram Hydrobromide 20 mg 12/09/19 09:00 12/10/19 09:12 Celexa PO 20 mg DAILY BOAZ Administration Dipyridamole/Aspirin 1 cap 12/08/19 21:00 12/10/19 20:49 Aggrenox PO 1 cap BID BOAZ Administration Enoxaparin Sodium 40 mg 12/09/19 09:00 12/10/19 09:13 Lovenox SC 40 mg 0900 BOAZ Administration Famotidine 20 mg 12/08/19 21:00 12/10/19 20:49 Pepcid PO 20 mg BID BOAZ Administration Insulin Glargine 25 units/ 0.25 mls @ 0 mls/hr 12/08/19 21:00 12/10/19 20:49 Miscellaneous Medication SC 0.25 mls BID BOAZ Administration Insulin Human Lispro 0 units 12/08/19 16:55 12/11/19 06:37 Humalog SC 2 unit .MODERATE SLIDING SC PRN Administration Moderate Correctional Scale Rosuvastatin Calcium 40 mg 12/08/19 21:00 12/10/19 20:49 Crestor PO 40 mg HS BOAZ Administration - Exam General Appearance: awake alert ENT: normocephalic atraumatic Neck: supple Heart: RRR Respiratory: normal chest expansion, no tachypnea Gastrointestinal: soft, non-tender Neurological: cranial nerve grossly intact Neurological - other findings: Right sided 4 out of 5 weakness in the upper extremity. Hosp A/P - Plan Hosp A/P (1) Acute CVA (cerebrovascular accident) Code(s): I63.9 - CEREBRAL INFARCTION, UNSPECIFIED Status: Acute (2) Carotid stenosis, left Code(s): I65.22 - OCCLUSION AND STENOSIS OF LEFT CAROTID ARTERY Status: Acute (3) DM type 2 (diabetes mellitus, type 2) Status: Chronic Qualifiers: Diabetes mellitus fci insulin use: with fci use Diabetes mellitus complication status: without complication Qualified Code(s): E11.9 - Type 2 diabetes mellitus without complications; Z79.4 - 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 container terminal (current) use of insulin (4) Dyslipidemia Code(s): E78.5 - HYPERLIPIDEMIA, UNSPECIFIED Status: Chronic (5) HTN (hypertension) Code(s): I10 - ESSENTIAL (PRIMARY) HYPERTENSION Status: Chronic Qualifiers: Hypertension type: essential hypertension Qualified Code(s): I10 - Essential (primary) hypertension (6) Coronary artery disease Code(s): I25.10 - ATHSCL HEART DISEASE OF [place] CORONARY ARTERY W/O ANG PCTRS Status: Chronic Qualifiers: Coronary Disease-Associated Artery/Lesion type: bypass graft [place] vs. transplanted heart: [place] heart - Plan MRI wo contrast shows watershed infarcts in left cerebral hemisphere, has left inf lateral frontal lesion MRI with contrast confirms infarcts in left frontal lesion Will need BOLIVAR, transthoracic echo did not reveal thrombus, has good ef Likely carotid endarterectomy on Thursday or thursday after BOLIVAR results are available, d/w . quit smoking in 2017 when she had cabg, has right upper lobe non calcified 6-8 mm nodule on aggrenox, crestor, celexa, lantus she has ambulated in hallway hemostable, neurologically no further worsening after admission I have full updates to patient and she is aware of plans including carotid surgery 12/10: No further events overnight. The patient's right upper extremity weakness and numbness are improving according to her. Continue current medications. Plan for BOLIVAR and subsequent carotid endarterectomy on the left side next week.
[2019-12-11] MEDS: Citalopram 20 MG TAB PO SCH (09:21)
[2019-12-11] MEDS: Aggrenox 200-25mg CAP PO SCH ×2 (09:21→20:46)
[2019-12-11] MEDS: Famotidine 20 MG TAB PO SCH ×2 (09:21→20:46)
[2019-12-11] MEDS: Enoxaparin Sodium 40 MG/0.4 ML SYRINGE SC SCH (09:22)
[2019-12-11] MEDS: Insulin Glargine 25 UNITS in Pre-Filled Syringe SC SCH ×2 (09:22→20:46)
[2019-12-11] MEDS: Acetaminophen 325 MG TAB PO PRN (20:45)
[2019-12-11] MEDS: Rosuvastatin 20 MG TAB PO SCH (20:46)
[2019-12-12 05:05] LABS: Anion Gap 10 mmol/L (10-20); BUN (Urea Nitrogen) 15 mg/dL (9.8-20.1); Calc. Creatinine Clearance 66 mL/min (70-130); Calcium 8.7 mg/dL (7.8-10.44); Carbon Dioxide 24 mmol/L (23-31); Chloride 104 mmol/L (98-107); Estimated GFR-MDRD 65; Glucose 168 mg/dL (80-115); Potassium 4.1 mmol/L (3.5-5.1); Sodium 134 mmol/L (136-145)
[2019-12-12 05:07] LABS: Eosinophils 1 % (0-10); Hemoglobin 11.1 g/dL (12.0-16.0); Lymphocytes 51 % (21-51); MDiff Complete? YES; Mean Corpuscular HGB CONC 32.6 g/dL (32.0-36.0); Mean Corpuscular Hemoglobin 30.1 pg (27.0-31.0); Mean Corpuscular Volume 92.3 fL (78.0-98.0); Mean Platelet Volume 6.8 fL (7.4-10.4); Monocytes 10 % (0-10); Neutrophil 38 % (42-75); Platelet Count 303 thou/uL (130-400); Platelet Morphology Comment Appears Adequate; RBC Distribution Width 12.3 % (11.5-14.5); Red Blood Cell (RBC) Count 3.68 mill/uL (4.20-5.40)
[2019-12-12] MEDS: HumaLOG 300 UNITS/3 ML VIAL SC PRN (06:09)
[2019-12-12] MEDS ORDERED: Ketamine 50 MG/ML (10ML VIAL) ONE (07:56)
[2019-12-12] MEDS ORDERED: Lidocaine 1% (PF) 30 ML VIAL ONE (08:06)
[2019-12-12] MEDS ORDERED: Glycopyrrolate 0.2 MG/ML 5 ML SYRINGE ONE ×2 (08:14→10:04)
[2019-12-12] MEDS ORDERED: PROPOFOL 20 ML ONE (08:22)
[2019-12-12] MEDS: Insulin Glargine 25 UNITS in Pre-Filled Syringe SC SCH ×2 (09:00→21:09)
[2019-12-12] MEDS ORDERED: PROPOFOL 200 MG/20 ML VIAL ONE (10:04)
[2019-12-12] MEDS ORDERED: Lidocaine 1% PF 5 ML VIAL ONE (10:04)
[2019-12-12] MEDS: Enoxaparin Sodium 40 MG/0.4 ML SYRINGE SC SCH (11:00)
[2019-12-12] MEDS: Acetaminophen 325 MG TAB PO PRN ×2 (11:23→21:09)
[2019-12-12] MEDS: Citalopram 20 MG TAB PO SCH (11:25)
[2019-12-12] MEDS: Famotidine 20 MG TAB PO SCH ×2 (11:25→20:26)
[2019-12-12] MEDS: Aggrenox 200-25mg CAP PO SCH ×2 (11:25→20:26)
--- NOTE | 2019-12-12 13:19 | PDOC.HOSPP ---
- Subjective Encounter Date: 12/12/19 Subjective: NEUROLOGY PROGRESS NOTE No acute events overnight. - Objective Vital Signs & Weight: Vital Signs (12 hours) Temp Pulse Resp BP BP Pulse Ox 12/12/19 12:00 98.3 F 81 16 147/80 H 97 12/12/19 09:00 97 18 118/82 96 12/12/19 03:34 97.7 F 78 20 129/78 98 Weight Weight 166 lb 1.6 oz I&O: 12/11/19 12/12/19 12/13/19 06:59 06:59 06:59 Intake Total 840 1220 Balance 840 1220 Result Diagrams: 12/12/19 04:36 12/12/19 04:36 Additional Labs: Accuchecks 12/12/19 12/12/19 12/11/19 10:41 05:12 20:40 POC Glucose 147 H 173 H 249 H 12/11/19 12/11/19 16:26 10:21 POC Glucose 139 H 219 H Radiology Reviewed by me: Yes EKG Reviewed by me: Yes Hospitalist ROS - Review of Systems Constitutional: denies: fever, chills, sweats, weakness, malaise, other Eyes: denies: pain, vision change, conjunctivae inflammation, eyelid inflammation, redness, other ENT: denies: ear pain, ear discharge, nose pain, nose discharge, nose congestion , mouth pain, mouth swelling, throat pain, throat swelling, other Respiratory: denies: cough, dry, shortness of breath, hemoptysis, SOB with excertion, pleuritic pain, sputum, wheezing, other Cardiovascular: denies: chest pain, palpitations, orthopnea, paroxysmal noc. dyspnea, edema, light headedness, other Gastrointestinal: denies: nausea, vomiting, abdominal pain, diarrhea, constipation, melena, hematochezia, other Genitourinary: denies: dysuria, frequency, incontinence, hematuria, retention, other Musculoskeletal: denies: neck pain, shoulder pain, arm pain, back pain, hand pain, leg pain, foot pain, other Skin: denies: rash, lesions, william, bruising, other Neurological: reports: weakness, incoordination - Medication Medications: Active Medications Generic Name Dose Route Start Last Admin Trade Name Freq PRN Reason Stop Dose Admin Acetaminophen 650 mg 12/08/19 16:55 12/12/19 11:23 Tylenol PO 650 mg Q4H PRN Administration Headache/Fever/Mild Pain (1-3) Citalopram Hydrobromide 20 mg 12/09/19 09:00 12/12/19 11:25 Celexa PO 20 mg DAILY BOAZ Administration Dipyridamole/Aspirin 1 cap 12/08/19 21:00 12/12/19 11:25 Aggrenox PO 1 cap BID BOAZ Administration Enoxaparin Sodium 40 mg 12/09/19 09:00 12/12/19 11:00 Lovenox SC Not Given 0900 BOAZ Famotidine 20 mg 12/08/19 21:00 12/12/19 11:25 Pepcid PO 20 mg BID BOAZ Administration Insulin Glargine 25 units/ 0.25 mls @ 0 mls/hr 12/08/19 21:00 12/12/19 09:00 Miscellaneous Medication SC Not Given BID BOAZ Insulin Human Lispro 0 units 12/08/19 16:55 12/12/19 06:09 Humalog SC 2 unit .MODERATE SLIDING SC PRN Administration Moderate Correctional Scale Rosuvastatin Calcium 40 mg 12/08/19 21:00 12/11/19 20:46 Crestor PO 40 mg HS BOAZ Administration Sodium Chloride 10 ml 12/08/19 16:55 12/11/19 20:47 Flush - Normal Saline IVF 10 ml PRN PRN Administration Saline Flush - Exam Eye: PERRL ENT: normocephalic atraumatic, no oropharyngeal lesions Neck: supple Heart: RRR Respiratory: CTAB Gastrointestinal: soft Extremities: no cyanosis Skin: normal turgor Neurological: cranial nerve grossly intact, normal sensation to touch, no new deficit Neurological - other findings: Right side weakness 4/5 Musculoskeletal: normal tone, no muscle wasting Psychiatric: normal affect, normal behavior, A&O x 3, oriented to person, oriented to place, oriented to time Hosp A/P (1) Acute CVA (cerebrovascular accident) Code(s): I63.9 - CEREBRAL INFARCTION, UNSPECIFIED Status: Acute (2) Carotid stenosis, left Code(s): I65.22 - OCCLUSION AND STENOSIS OF LEFT CAROTID ARTERY Status: Acute (3) DM type 2 (diabetes mellitus, type 2) Status: Chronic Qualifiers: Diabetes mellitus care home insulin use: with oil heaterman use Diabetes mellitus complication status: without complication Qualified Code(s): E11.9 - Type 2 diabetes mellitus without complications; Z79.4 - skilled nursing (current) use of insulin (4) Dyslipidemia Code(s): E78.5 - HYPERLIPIDEMIA, UNSPECIFIED Status: Chronic (5) HTN (hypertension) Code(s): I10 - ESSENTIAL (PRIMARY) HYPERTENSION Status: Chronic Qualifiers: Hypertension type: essential hypertension Qualified Code(s): I10 - Essential (primary) hypertension (6) NSTEMI (non-ST elevated myocardial infarction) Code(s): I21.4 - NON-ST ELEVATION (NSTEMI) MYOCARDIAL INFARCTION Status: Acute (7) S/P CABG x 5 Code(s): Z95.1 - PRESENCE OF AORTOCORONARY BYPASS GRAFT Status: Acute (8) Coronary artery disease Code(s): I25.10 - ATHSCL HEART DISEASE OF [place] CORONARY ARTERY W/O ANG PCTRS Status: Chronic Qualifiers: Coronary Disease-Associated Artery/Lesion type: bypass graft [place] vs. transplanted heart: [place] heart - Plan old records reviewed/req, PT/OT, speech therapy 64 year old presented with left sided weakness. MRI wo contrast showed watershed infarcts in left cerebral hemisphere MRI with contrast confirms infarctions in left frontal region Recommend BOLIVAR, since transthoracic echo negative for thrombus Consider carotid endarterectomy after BOLIVAR results Continue home medications. Strict control of BP and BG. Neurochecks every 4 hours. Continue aggrenox and statin for secondary stroke prevention. PT/OT/Speech Continue medical management per primary team
--- NOTE | 2019-12-12 17:51 | CT ---
Exam: Head CT without contrast HISTORY: Recent stroke. Worsening aphasia. COMPARISON: 12/08/2019 Correlation: Brain MRI 12/09/2019 FINDINGS: Hemorrhage: No intraparenchymal hemorrhage or extra-axial hematoma. Brain parenchyma: Continued evolution of alate subacute left frontal lobe infarct. No new areas of si gnificant loss of person-white matter differentiation. No midline shift. Basilar cisterns are patent.Stable hypodensity in the left centrum semiovale Ventricular system: Ventricles and sulci are patent and symmetric. Calvarium: Intact. Sinuses and mastoid air cells: Adequate aeration. IMPRESSION: 1. No significant interval change. 2. Subacute infarct in the left frontal lobe.
--- NOTE | 2019-12-12 18:33 | PDOC.HOSPP ---
- Objective Vital Signs & Weight: Vital Signs (12 hours) Temp Pulse Resp BP Pulse Ox 12/12/19 16:00 98.3 F 86 17 115/68 96 12/12/19 12:00 98.3 F 81 16 147/80 H 97 12/12/19 09:00 97 18 118/82 96 Weight Weight 166 lb 1.6 oz I&O: 12/11/19 12/12/19 12/13/19 06:59 06:59 06:59 Intake Total 840 1220 Balance 840 1220 Result Diagrams: 12/12/19 04:36 12/12/19 04:36 Additional Labs: Accuchecks 12/12/19 12/12/19 12/12/19 16:51 10:41 05:12 POC Glucose 132 H 147 H 173 H 12/11/19 20:40 POC Glucose 249 H Hospitalist ROS - Medication Medications: Active Medications Generic Name Dose Route Start Last Admin Trade Name Freq PRN Reason Stop Dose Admin Acetaminophen 650 mg 12/08/19 16:55 12/12/19 11:23 Tylenol PO 650 mg Q4H PRN Administration Headache/Fever/Mild Pain (1-3) Citalopram Hydrobromide 20 mg 12/09/19 09:00 12/12/19 11:25 Celexa PO 20 mg DAILY BOAZ Administration Dipyridamole/Aspirin 1 cap 12/08/19 21:00 12/12/19 11:25 Aggrenox PO 1 cap BID BOAZ Administration Enoxaparin Sodium 40 mg 12/09/19 09:00 12/12/19 11:00 Lovenox SC Not Given 0900 BOAZ Famotidine 20 mg 12/08/19 21:00 12/12/19 11:25 Pepcid PO 20 mg BID BOAZ Administration Insulin Glargine 25 units/ 0.25 mls @ 0 mls/hr 12/08/19 21:00 12/12/19 09:00 Miscellaneous Medication SC Not Given BID BOAZ Insulin Human Lispro 0 units 12/08/19 16:55 12/12/19 06:09 Humalog SC 2 unit .MODERATE SLIDING SC PRN Administration Moderate Correctional Scale Rosuvastatin Calcium 40 mg 12/08/19 21:00 12/11/19 20:46 Crestor PO 40 mg HS BOAZ Administration Sodium Chloride 10 ml 12/08/19 16:55 12/11/19 20:47 Flush - Normal Saline IVF 10 ml PRN PRN Administration Saline Flush - Exam General Appearance: ill appearing ENT: normocephalic atraumatic Neck: supple Heart: RRR Respiratory: normal chest expansion, no tachypnea Gastrointestinal: soft, non-tender, non-distended Neurological - other findings: The patient is drowsy after her procedure and unable to participate in neur Hosp A/P - Plan Hosp A/P (1) Acute CVA (cerebrovascular accident) Code(s): I63.9 - CEREBRAL INFARCTION, UNSPECIFIED Status: Acute (2) Carotid stenosis, left Code(s): I65.22 - OCCLUSION AND STENOSIS OF LEFT CAROTID ARTERY Status: Acute (3) DM type 2 (diabetes mellitus, type 2) Status: Chronic Qualifiers: Diabetes 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 insulin use: with care home use Diabetes mellitus complication status: without complication Qualified Code(s): E11.9 - Type 2 diabetes mellitus without complications; Z79.4 - meterman (current) use of insulin (4) Dyslipidemia Code(s): E78.5 - HYPERLIPIDEMIA, UNSPECIFIED Status: Chronic (5) HTN (hypertension) Code(s): I10 - ESSENTIAL (PRIMARY) HYPERTENSION Status: Chronic Qualifiers: Hypertension type: essential hypertension Qualified Code(s): I10 - Essential (primary) hypertension (6) Coronary artery disease Code(s): I25.10 - ATHSCL HEART DISEASE OF [place] CORONARY ARTERY W/O ANG PCTRS Status: Chronic Qualifiers: Coronary Disease-Associated Artery/Lesion type: bypass graft [place] vs. transplanted heart: [place] heart - Plan MRI wo contrast shows watershed infarcts in left cerebral hemisphere, has left inf lateral frontal lesion MRI with contrast confirms infarcts in left frontal lesion Will need BOLIVAR, transthoracic echo did not reveal thrombus, has good ef Likely carotid endarterectomy on Thursday or thursday after BOLIVAR results are available, d/w . quit smoking in 2016 when she had cabg, has right upper lobe non calcified 6-8 mm nodule on aggrenox, crestor, celexa, lantus she has ambulated in hallway hemostable, neurologically no further worsening after admission I have full updates to patient and she is aware of plans including carotid surgery 12/10: No further events overnight. The patient's right upper extremity weakness and numbness are improving according to her. Continue current medications. Plan for BOLIVAR and subsequent carotid endarterectomy on the left side next week. 12/11: The patient has been less responsive today after her procedure CT scan of the head was obtained due to concern of worsening CVA with the results did not show any interval change. Will continue to monitor the patient closely.
[2019-12-12] MEDS: Rosuvastatin 20 MG TAB PO SCH (20:26)
[2019-12-13] MEDS: Acetaminophen 325 MG TAB PO PRN ×3 (02:00→16:27)
[2019-12-13 05:51] LABS: Hemoglobin 11.3 g/dL (12.0-16.0); Lymphocytes 36 % (21-51); MDiff Complete? YES; Mean Corpuscular HGB CONC 31.3 g/dL (32.0-36.0); Mean Corpuscular Volume 92.8 fL (78.0-98.0); Mean Platelet Volume 6.9 fL (7.4-10.4); Monocytes 2 % (0-10); Neutrophil 62 % (42-75); Platelet Count 326 thou/uL (130-400); Platelet Morphology Comment Appears Adequate; RBC Distribution Width 12.5 % (11.5-14.5); RBC Morphology Normal; Red Blood Cell (RBC) Count 3.88 mill/uL (4.20-5.40); White Blood Cell (WBC) Count 8.9 thou/uL (4.8-10.8)
[2019-12-13 05:52] LABS: Anion Gap 13 mmol/L (10-20); BUN (Urea Nitrogen) 10 mg/dL (9.8-20.1); Calc. Creatinine Clearance 79 mL/min (70-130); Calcium 8.7 mg/dL (7.8-10.44); Carbon Dioxide 22 mmol/L (23-31); Chloride 105 mmol/L (98-107); Estimated GFR-MDRD 78; Glucose 157 mg/dL (80-115); Potassium 4.1 mmol/L (3.5-5.1); Sodium 136 mmol/L (136-145)
[2019-12-13] MEDS: HumaLOG 300 UNITS/3 ML VIAL SC PRN ×3 (06:11→17:35)
[2019-12-13] MEDS: Enoxaparin Sodium 40 MG/0.4 ML SYRINGE SC SCH (09:06)
[2019-12-13] MEDS: Famotidine 20 MG TAB PO SCH ×2 (09:06→20:59)
[2019-12-13] MEDS: Aggrenox 200-25mg CAP PO SCH ×2 (09:07→20:59)
[2019-12-13] MEDS: Citalopram 20 MG TAB PO SCH (09:07)
[2019-12-13] MEDS: Insulin Glargine 25 UNITS in Pre-Filled Syringe SC SCH ×2 (09:07→20:59)
--- NOTE | 2019-12-13 11:21 | PDOC.HOSPP ---
- Subjective Encounter Date: 12/13/19 - Objective Vital Signs & Weight: Vital Signs (12 hours) Temp Pulse Resp BP Pulse Ox 12/13/19 08:00 98 12/13/19 07:46 98.3 F 83 17 108/73 98 12/13/19 03:49 98.4 F 91 14 128/74 94 L 12/12/19 23:45 98.3 F 86 14 126/76 95 Weight Weight 170 lb 10.205 oz I&O: 12/12/19 12/13/19 12/14/19 06:59 06:59 06:59 Intake Total 1220 740 Balance 1220 740 Result Diagrams: 12/13/19 05:13 12/13/19 05:13 Additional Labs: Accuchecks 12/13/19 12/13/19 12/12/19 10:43 05:36 20:45 POC Glucose 220 H 156 H 188 H 12/12/19 16:51 POC Glucose 132 H Hospitalist ROS - Medication Medications: Active Medications Generic Name Dose Route Start Last Admin Trade Name Freq PRN Reason Stop Dose Admin Acetaminophen 650 mg 12/08/19 16:55 12/13/19 02:00 Tylenol PO 650 mg Q4H PRN Administration Headache/Fever/Mild Pain (1-3) Citalopram Hydrobromide 20 mg 12/09/19 09:00 12/13/19 09:07 Celexa PO 20 mg DAILY BOAZ Administration Dipyridamole/Aspirin 1 cap 12/08/19 21:00 12/13/19 09:07 Aggrenox PO 1 cap BID BOAZ Administration Enoxaparin Sodium 40 mg 12/09/19 09:00 12/13/19 09:06 Lovenox SC 40 mg 0900 BOAZ Administration Famotidine 20 mg 12/08/19 21:00 12/13/19 09:06 Pepcid PO 20 mg BID BOAZ Administration Insulin Glargine 25 units/ 0.25 mls @ 0 mls/hr 12/08/19 21:00 12/13/19 09:07 Miscellaneous Medication SC 0.25 mls BID BOAZ Administration Insulin Human Lispro 0 units 12/08/19 16:55 12/13/19 06:11 Humalog SC 2 unit .MODERATE SLIDING SC PRN Administration Moderate Correctional Scale Rosuvastatin Calcium 40 mg 12/08/19 21:00 12/12/19 20:26 Crestor PO 40 mg HS BOAZ Administration Sodium Chloride 10 ml 12/08/19 16:55 12/11/19 20:47 Flush - Normal Saline IVF 10 ml PRN PRN Administration Saline Flush - Exam General Appearance: awake alert ENT: normocephalic atraumatic Neck: supple Heart: RRR Respiratory: normal chest expansion, no tachypnea Gastrointestinal: soft, non-distended Extremities: no cyanosis, no clubbing Neurological: cranial nerve grossly intact Hosp A/P - Plan Hosp A/P (1) Acute CVA (cerebrovascular accident) Code(s): I63.9 - CEREBRAL INFARCTION, UNSPECIFIED Status: Acute (2) Carotid stenosis, left Code(s): I65.22 - OCCLUSION AND STENOSIS OF LEFT CAROTID ARTERY Status: Acute (3) DM type 2 (diabetes mellitus, type 2) Status: Chronic Qualifiers: Diabetes mellitus 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 marine oil terminal insulin use: with 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 marine oil terminal use Diabetes mellitus complication status: without complication Qualified Code(s): E11.9 - Type 2 diabetes mellitus without complications; Z79.4 - terminal supervisor (current) use of insulin (4) Dyslipidemia Code(s): E78.5 - HYPERLIPIDEMIA, UNSPECIFIED Status: Chronic (5) HTN (hypertension) Code(s): I10 - ESSENTIAL (PRIMARY) HYPERTENSION Status: Chronic Qualifiers: Hypertension type: essential hypertension Qualified Code(s): I10 - Essential (primary) hypertension (6) Coronary artery disease Code(s): I25.10 - ATHSCL HEART DISEASE OF [place] CORONARY ARTERY W/O ANG PCTRS Status: Chronic Qualifiers: Coronary Disease-Associated Artery/Lesion type: bypass graft [place] vs. transplanted heart: [place] heart - Plan MRI wo contrast shows watershed infarcts in left cerebral hemisphere, has left inf lateral frontal lesion MRI with contrast confirms infarcts in left frontal lesion Will need BOLIVAR, transthoracic echo did not reveal thrombus, has good ef Likely carotid endarterectomy on Thursday or thursday after BOLIVAR results are available, d/w . quit smoking in 2017 when she had cabg, has right upper lobe non calcified 6-8 mm nodule on aggrenox, crestor, celexa, lantus she has ambulated in hallway hemostable, neurologically no further worsening after admission I have full updates to patient and she is aware of plans including carotid surgery 12/10: No further events overnight. The patient's right upper extremity weakness and numbness are improving according to her. Continue current medications. Plan for BOLIVAR and subsequent carotid endarterectomy on the left side next week. 12/11: The patient has been less responsive today after her procedure CT scan of the head was obtained due to concern of worsening CVA with the results did not show any interval change. Will continue to monitor the patient closely. 12/12: The patient is more awake and responsive today. She follows commands. Appears to be a phasic. She is able to move all her extremities. Weaker than 2 days ago. We will repeat CT scan of the head tomorrow and monitor the patient closely. Her carotid endarterectomy procedure has been postponed. Continue PT, OT, and speech therapy.
--- NOTE | 2019-12-13 11:51 | PDOC.HOSPP ---
- Subjective Encounter Date: 12/13/19 Subjective: NEUROLOGY PROGRESS NOTE Patient somnolent yesterday after BOLIVAR with aphasia and worsening right UE weakness which improved in few hours. HCT showed no interval change. - Objective Vital Signs & Weight: Vital Signs (12 hours) Temp Pulse Resp BP Pulse Ox 12/13/19 11:26 98.4 F 84 16 123/83 96 12/13/19 08:00 98 12/13/19 07:46 98.3 F 83 17 108/73 98 12/13/19 03:49 98.4 F 91 14 128/74 94 L Weight Weight 170 lb 10.205 oz I&O: 12/12/19 12/13/19 12/14/19 06:59 06:59 06:59 Intake Total 1220 740 Balance 1220 740 Result Diagrams: 12/13/19 05:13 12/13/19 05:13 Additional Labs: Accuchecks 12/13/19 12/13/19 12/12/19 10:43 05:36 20:45 POC Glucose 220 H 156 H 188 H 12/12/19 16:51 POC Glucose 132 H Radiology Reviewed by me: Yes EKG Reviewed by me: Yes Hospitalist ROS - Review of Systems Constitutional: denies: fever, chills, sweats, weakness, malaise, other Eyes: reports: redness ENT: denies: ear pain, ear discharge, nose pain, nose discharge, nose congestion , mouth pain, mouth swelling, throat pain, throat swelling, other Respiratory: denies: cough, dry, shortness of breath, hemoptysis, SOB with excertion, pleuritic pain, sputum, wheezing, other Cardiovascular: denies: chest pain, palpitations, orthopnea, paroxysmal noc. dyspnea, edema, light headedness, other Gastrointestinal: denies: nausea, vomiting, abdominal pain, diarrhea, constipation, melena, hematochezia, other Genitourinary: denies: dysuria, frequency, incontinence, hematuria, retention, other Musculoskeletal: denies: neck pain, shoulder pain, arm pain, back pain, hand pain, leg pain, foot pain, other Neurological: reports: weakness, change in speech - Medication Medications: Active Medications Generic Name Dose Route Start Last Admin Trade Name Freq PRN Reason Stop Dose Admin Acetaminophen 650 mg 12/08/19 16:55 12/13/19 11:20 Tylenol PO 650 mg Q4H PRN Administration Headache/Fever/Mild Pain (1-3) Citalopram Hydrobromide 20 mg 12/09/19 09:00 12/13/19 09:07 Celexa PO 20 mg DAILY BOAZ Administration Dipyridamole/Aspirin 1 cap 12/08/19 21:00 12/13/19 09:07 Aggrenox PO 1 cap BID BOAZ Administration Enoxaparin Sodium 40 mg 12/09/19 09:00 12/13/19 09:06 Lovenox SC 40 mg 0900 BOAZ Administration Famotidine 20 mg 12/08/19 21:00 12/13/19 09:06 Pepcid PO 20 mg BID BOAZ Administration Insulin Glargine 25 units/ 0.25 mls @ 0 mls/hr 12/08/19 21:00 12/13/19 09:07 Miscellaneous Medication SC 0.25 mls BID BOAZ Administration Insulin Human Lispro 0 units 12/08/19 16:55 12/13/19 11:17 Humalog SC 4 unit .MODERATE SLIDING SC PRN Administration Moderate Correctional Scale Rosuvastatin Calcium 40 mg 12/08/19 21:00 12/12/19 20:26 Crestor PO 40 mg HS BOAZ Administration Sodium Chloride 10 ml 12/08/19 16:55 12/11/19 20:47 Flush - Normal Saline IVF 10 ml PRN PRN Administration Saline Flush - Exam General Appearance: awake alert Eye: PERRL, anicteric sclera ENT: normocephalic atraumatic, no oropharyngeal lesions, moist mucosa Neck: supple, symmetric, no JVD Heart: RRR Respiratory: CTAB Gastrointestinal: soft Extremities: no cyanosis, no clubbing, no edema Skin: normal turgor, no lesions, no rashes Neurological: cranial nerve grossly intact, speech deficit Neurological - other findings: right hemiparesis Musculoskeletal: normal tone, no muscle wasting Psychiatric: normal affect, normal behavior, A&O x 3, oriented to person, oriented to place, oriented to time Hosp A/P (1) Acute CVA (cerebrovascular accident) Code(s): I63.9 - CEREBRAL INFARCTION, UNSPECIFIED Status: Acute (2) Carotid stenosis, left Code(s): I65.22 - OCCLUSION AND STENOSIS OF LEFT CAROTID ARTERY Status: Acute (3) DM type 2 (diabetes mellitus, type 2) Status: Chronic Qualifiers: Diabetes mellitus oysterman insulin use: with oysterman use Diabetes mellitus complication status: without complication Qualified Code(s): E11.9 - Type 2 diabetes mellitus without complications; Z79.4 - custodial (current) use of insulin (4) Dyslipidemia Code(s): E78.5 - HYPERLIPIDEMIA, UNSPECIFIED Status: Chronic (5) HTN (hypertension) Code(s): I10 - ESSENTIAL (PRIMARY) HYPERTENSION Status: Chronic Qualifiers: Hypertension type: essential hypertension Qualified Code(s): I10 - Essential (primary) hypertension (6) NSTEMI (non-ST elevated myocardial infarction) Code(s): I21.4 - NON-ST ELEVATION (NSTEMI) MYOCARDIAL INFARCTION Status: Acute (7) S/P CABG x 5 Code(s): Z95.1 - PRESENCE OF AORTOCORONARY BYPASS GRAFT Status: Acute (8) Coronary artery disease Code(s): I25.10 - ATHSCL HEART DISEASE OF [place] CORONARY ARTERY W/O ANG PCTRS Status: Chronic Qualifiers: Coronary Disease-Associated Artery/Lesion type: bypass graft [place] vs. transplanted heart: [place] heart - Plan old records reviewed/req, PT/OT, speech therapy 64 year old presented with right UE sided weakness. MRI wo contrast showed watershed infarcts in left cerebral hemisphere MRI with contrast confirms infarctions in left frontal region BOLIVAR showed no thrombus or PFO. Carotid endarterectomy after repeat HCT tomorrow if stable. Continue home medications. Strict control of BP and BG. Neurochecks every 4 hours. Continue aggrenox and statin for secondary stroke prevention. PT/OT/Speech Continue medical management per primary team Plan discussed with the patient.
--- NOTE | 2019-12-13 15:52 | ECHO ---
DATE OF PROCEDURE: 12/11/18 INDICATION FOR PROCEDURE: This is a 64-year-old female who suffered a CVA and was found to have severe carotid artery stenosis. Was planned to undergo an carotid endarterectomy by Dr. Franklin. She was advised to undergo a transeso phageal echocardiogram to rule out evidence of intracardiac thrombi, masses, vegetations, left atrial or left atrial appendage thrombus. A left CEA is planned. She has suffered a right sided CVA. She was taken to the recovery area where she underwent short acting anesthesia using Ketamine, propof ol and lidocaine. The transesophageal probe was easily passed down the distal esophagus. It was somew hat difficult to manage to get the probe down but after several attempts was able to pass the probe d own the distal esophagus and pressures are as follows: 1. What appears to be normal left ventricular systolic function. 2. Left atrial dilatation. Atrium is 4.5 cm in diameter. 3. No evidence of left atrial or left atrial appendage thrombus. 4. Mild mitral valve regurgitation. 5. Mild tricuspid valve regurgitation. 6. Normal appearance of the valvular structures. There was no evidence of aortic valve regurgita tion. There is no evidence of patent foramen ovale or atrial septal defects. No evidence of intracard iac thrombi, masses or vegetations. 7. A bubble study was performed also just to rule out evidence of a patent foramen ovale and non e was noted. She tolerated the procedure well. IMPRESSION: 1. As above. No evidence of intracardiac thrombi, masses, vegetations. No evidence of patent for amen ovale. No atrial septal defects. 2. Well preserved left ventricular systolic function. 3. Mild mitral valve regurgitation. 4. Mild tricuspid valve regurgitation. 5. Left atrial dilatation.
--- NOTE | 2019-12-13 16:19 | PDOC.CPN ---
- Subjective Date: 12/13/19 Time: 08:30 Interval history: The pt seen and examined. No overnight events. No cardiac complaints. - Objective Allergies/Adverse Reactions: Allergies Allergy/AdvReac Type Severity Reaction Status Date / Time No Known Allergies Allergy Verified 10/13/19 12:35 Visit Medications: Current Medications Acetaminophen (Tylenol) 650 mg PO Q4H PRN PRN Reason: Headache/Fever/Mild Pain (1-3) Last Admin: 12/13/19 11:20 Dose: 650 mg Bisacodyl (Dulcolax) 10 mg IN DAILYPRN PRN PRN Reason: Constipation Citalopram Hydrobromide (Celexa) 20 mg PO DAILY [facility] Last Admin: 12/13/19 09:07 Dose: 20 mg Dextrose/Water (Dextrose 50%) 25 gm SLOW IVP PRN PRN PRN Reason: Hypoglycemia Dipyridamole/Aspirin (Aggrenox) 1 cap PO BID [facility] Last Admin: 12/13/19 09:07 Dose: 1 cap Enoxaparin Sodium (Lovenox) 40 mg SC 0900 [facility] Last Admin: 12/13/19 09:06 Dose: 40 mg Famotidine (Pepcid) 20 mg PO BID [facility] Last Admin: 12/13/19 09:06 Dose: 20 mg Glucagon (Glucagon) 1 mg IM PRN PRN PRN Reason: Hypoglycemia Guaifenesin/Dextromethorphan (Robitussin Dm) 15 ml PO Q4H PRN PRN Reason: Cough Dextrose/Water (D5w) 1,000 mls @ 0 mls/hr IV .Q0M PRN PRN Reason: Hypoglycemia Insulin Glargine 25 units/ (Miscellaneous Medication) 0.25 mls @ 0 mls/hr SC BID [facility] Last Admin: 12/13/19 09:07 Dose: 0.25 mls Insulin Human Lispro (Humalog) 0 units SC .MODERATE SLIDING SC PRN PRN Reason: Moderate Correctional Scale Last Admin: 12/13/19 11:17 Dose: 4 unit Ondansetron HCl (Zofran) 4 mg IVP Q6H PRN PRN Reason: Nausea/Vomiting Rosuvastatin Calcium (Crestor) 40 mg PO HS [facility] Last Admin: 12/12/19 20:26 Dose: 40 mg Senna/Docusate Sodium (Senokot S) 2 tab PO BID PRN PRN Reason: Constipation Sodium Chloride (Flush - Normal Saline) 10 ml IVF PRN PRN PRN Reason: Saline Flush Last Admin: 12/11/19 20:47 Dose: 10 ml Vital Signs & Weight: Vital Signs Temp Pulse Resp BP Pulse Ox 12/13/19 15:14 98.1 F 86 16 140/77 96 12/13/19 11:26 98.4 F 84 16 123/83 96 12/13/19 08:00 98 12/13/19 07:46 98.3 F 83 17 108/73 98 Weight 170 lb 10.205 oz - Physical Exam General: alert & oriented x3 HEENT: mucus membranes moist Neck: supple neck Cardiac: regular rate and rhythm, S1/S2 Lungs: clear to auscultation, decreased breath sounds Extremities: no edema Musculoskeletal: other (Rt side weakness) - Labs Result Diagrams: 12/13/19 05:13 12/13/19 05:13 Troponin/CKMB Troponin I 0.014 ng/mL (< 0.028) 12/08/19 13:55 - Telemetry Sinus rhythms and dysrhythmias: sinus rhythm - Assessment/Plan Assessment/Plan: 1. Acute CVA with Rt side weakness - s/p BOLIVAR with no thrombus or PFO. Per the pt, her RUL movement has been improving slowly today;on Aggrenox 2. Critical stenosis at Lt ICA - Plan for Carotid endarterectomy after repeat HCT tomorrow if stable. 3. CAD with hx of CABG x 5 in 2017 - on Aggrenox; on Statin; will start BBlocker with more stable VS 4. DM type 2 5. HLD - will increase Lipitor [id number] 80mg for LDL 87 (should be less than 70 for hx of CABG) 6. Ex-smoker, quit in 2016 - SEP reviewed * BOLIVAR on 12/12/2019 with EF50-55%, mild LAE, mild TR and MR
[2019-12-13] MEDS ORDERED: Atorvastatin Calcium 40 MG TAB PO SCH (21:00)
[2019-12-14 05:12] LABS: Eosinophils 1 % (0-10); Hemoglobin 11.2 g/dL (12.0-16.0); Lymphocytes 51 % (21-51); MDiff Complete? YES; Mean Corpuscular HGB CONC 32.1 g/dL (32.0-36.0); Mean Corpuscular Hemoglobin 29.8 pg (27.0-31.0); Mean Corpuscular Volume 92.9 fL (78.0-98.0); Mean Platelet Volume 7.1 fL (7.4-10.4); Monocytes 8 % (0-10); Neutrophil 40 % (42-75); Platelet Count 308 thou/uL (130-400); Platelet Morphology Comment Appears Adequate; RBC Distribution Width 12.5 % (11.5-14.5); Red Blood Cell (RBC) Count 3.75 mill/uL (4.20-5.40); White Blood Cell (WBC) Count 7.6 thou/uL (4.8-10.8)
[2019-12-14 05:18] LABS: Anion Gap 14 mmol/L (10-20); BUN (Urea Nitrogen) 19 mg/dL (9.8-20.1); Calc. Creatinine Clearance 64 mL/min (70-130); Calcium 8.9 mg/dL (7.8-10.44); Carbon Dioxide 22 mmol/L (23-31); Chloride 106 mmol/L (98-107); Estimated GFR-MDRD 62; Glucose 168 mg/dL (80-115); Sodium 138 mmol/L (136-145)
[2019-12-14] MEDS: HumaLOG 300 UNITS/3 ML VIAL SC PRN (06:22)
--- NOTE | 2019-12-14 08:24 | CT ---
PRELIMINARY REPORT/[facility]/EMERGENCY AFTER HOURS PROCEDURE PROCEDURE: CT Head without Contrast . HISTORY: Follow-up cerebrovascular accident. TECHNIQUE: Axial images were performed without the administration of IV contrast with or without mult iplanar reformations . COMPARISON: 12/12/2019. FINDINGS: Unchanged 2 cm low-density area white matter region of the LEFT frontal lobe consistent with subacute infarct. No intracranial hemorrhage. No midline shift. No hydrocephalus. No other acute change visualized. IMPRESSION: Unchanged edema related to subacute infarct LEFT frontal lobe. ELECTRONICALLY SIGNED BY: Murray Jimenez MD December 14, 2019 4:59:07 AM CDT This report is intended for review by the ordering physician only, in accordance of law. If you recei ve this report in error, please call [facility] at [phone]. FINAL REPORT EMERGENT AFTER HOURS CT OF THE BRAIN WITHOUT CONTRAST: FINDINGS/IMPRESSION: I agree with the findings and impression given in the preliminary report per [facility] physici an. There is a stable hypodense region in the left frontal lobe. POS: DEVYN
--- NOTE | 2019-12-14 08:56 | PRG ---
DATE OF SERVICE: 12/14/2019 This morning, the patient's neurologic exam has continued to improve post BOLIVAR. She has return of her right hand function to about baseline prior to her BOLIVAR. Her speech is somewhat better, but she still has expressive aphasia, but can string a few words together without difficulty. I think her CT scan was done this morning and interpretation is pending on that, but at this point, I think she can be discharged home with outpatient rehab and I will see her back in the office next week with a carotid ultrasound, and if her carotid artery is still patent and her neurologic exam has continued to improve, we will plan on a left carotid endarterectomy next week or the week after. She can be discharged on Aggrenox and Plavix can be added to this regimen as well. Job ID: [id number]
[2019-12-14] MEDS ORDERED: Clopidogrel Bisulfate 75 MG TAB PO SCH (09:00)
[2019-12-14] MEDS: Famotidine 20 MG TAB PO SCH (10:12)
[2019-12-14] MEDS: Aggrenox 200-25mg CAP PO SCH (10:12)
[2019-12-14] MEDS: Citalopram 20 MG TAB PO SCH (10:12)
[2019-12-14] MEDS: Insulin Glargine 25 UNITS in Pre-Filled Syringe SC SCH (10:12)
[2019-12-14] MEDS: Enoxaparin Sodium 40 MG/0.4 ML SYRINGE SC SCH (10:13)
--- NOTE | 2019-12-14 11:00 | PDOC.CPN ---
- Subjective Date: 12/14/19 Time: 08:30 Interval history: The pt seen and examined. No overnight events. No cardiac complaints. - Objective Allergies/Adverse Reactions: Allergies Allergy/AdvReac Type Severity Reaction Status Date / Time No Known Allergies Allergy Verified 10/13/19 12:35 Visit Medications: Current Medications Acetaminophen (Tylenol) 650 mg PO Q4H PRN PRN Reason: Headache/Fever/Mild Pain (1-3) Last Admin: 12/13/19 16:27 Dose: 650 mg Atorvastatin Calcium (Lipitor) 80 mg PO HS [facility] Last Admin: 12/13/19 20:59 Dose: 80 mg Bisacodyl (Dulcolax) 10 mg [facility] DAILYPRN PRN PRN Reason: Constipation Citalopram Hydrobromide (Celexa) 20 mg PO DAILY [facility] Last Admin: 12/14/19 10:12 Dose: 20 mg Clopidogrel Bisulfate (Plavix) 75 mg PO DAILY [facility] Last Admin: 12/14/19 10:12 Dose: 75 mg Dextrose/Water (Dextrose 50%) 25 gm SLOW IVP PRN PRN PRN Reason: Hypoglycemia Dipyridamole/Aspirin (Aggrenox) 1 cap PO BID [facility] Last Admin: 12/14/19 10:12 Dose: 1 cap Enoxaparin Sodium (Lovenox) 40 mg SC 0900 [facility] Last Admin: 12/14/19 10:13 Dose: 40 mg Famotidine (Pepcid) 20 mg PO BID [facility] Last Admin: 12/14/19 10:12 Dose: 20 mg Glucagon (Glucagon) 1 mg IM PRN PRN PRN Reason: Hypoglycemia Guaifenesin/Dextromethorphan (Robitussin Dm) 15 ml PO Q4H PRN PRN Reason: Cough Dextrose/Water (D5w) 1,000 mls @ 0 mls/hr IV .Q0M PRN PRN Reason: Hypoglycemia Insulin Glargine 25 units/ (Miscellaneous Medication) 0.25 mls @ 0 mls/hr SC BID [facility] Last Admin: 12/14/19 10:12 Dose: 0.25 mls Insulin Human Lispro (Humalog) 0 units SC .MODERATE SLIDING SC PRN PRN Reason: Moderate Correctional Scale Last Admin: 12/14/19 06:22 Dose: 2 unit Ondansetron HCl (Zofran) 4 mg IVP Q6H PRN PRN Reason: Nausea/Vomiting Senna/Docusate Sodium (Senokot S) 2 tab PO BID PRN PRN Reason: Constipation Sodium Chloride (Flush - Normal Saline) 10 ml IVF PRN PRN PRN Reason: Saline Flush Last Admin: 12/11/19 20:47 Dose: 10 ml Vital Signs & Weight: Vital Signs Temp Pulse Resp BP Pulse Ox 12/14/19 07:18 98.1 F 82 16 98 12/14/19 03:26 98 F 81 20 123/77 98 12/13/19 23:07 98.1 F 87 20 121/76 96 Weight 170 lb 10.205 oz - Physical Exam General: alert & oriented x3 HEENT: mucus membranes moist Neck: supple neck Cardiac: regular rate and rhythm, S1/S2 Lungs: clear to auscultation - Labs Result Diagrams: 12/14/19 04:36 12/14/19 04:36 Troponin/CKMB Troponin I 0.014 ng/mL (< 0.028) 12/08/19 13:55 - Assessment/Plan Assessment/Plan: 1. Acute CVA with Rt side weakness - s/p BOLIVAR with no thrombus or PFO. Her speech and movement of RUE have been improving today; on Aggrenox and Plavix 2. Critical stenosis at Lt ICA - Plan for Carotid endarterectomy by Dr montgomery as outpt setting. 3. CAD with hx of CABG x 5 in 2017 - on Aggrenox; on Statin; will start BBlocker with more stable VS 4. DM type 2 5. HLD - will increase Lipitor [id number] 80mg for LDL 87 (should be less than 70 for hx of CABG) 6. Ex-smoker, quit in 2016 - SEP reviewed * BOLIVAR on 12/12/2019 with EF50-55%, mild LAE, mild TR and MR
[2019-12-14 11:32] VITALS: BP 126/74; TEMP 98
--- NOTE | 2019-12-14 12:13 | PDOC.HOSPP ---
- Subjective Encounter Date: 12/14/19 Subjective: NEUROLOGY PROGRESS NOTE No acute events overnight. - Objective Vital Signs & Weight: Vital Signs (12 hours) Temp Pulse Resp BP Pulse Ox 12/14/19 11:30 98.0 F 86 18 126/74 97 12/14/19 07:18 98.1 F 82 16 98 12/14/19 03:26 98 F 81 20 123/77 98 Weight Weight 170 lb 10.205 oz I&O: 12/13/19 12/14/19 12/15/19 06:59 06:59 06:59 Intake Total 740 1140 Balance 740 1140 Result Diagrams: 12/14/19 04:36 12/14/19 04:36 Additional Labs: Accuchecks 12/14/19 12/14/19 12/13/19 10:38 05:13 20:32 POC Glucose 193 H 183 H 224 H 12/13/19 16:51 POC Glucose 160 H Radiology Reviewed by me: Yes EKG Reviewed by me: Yes Hospitalist ROS - Review of Systems Constitutional: denies: fever, chills, sweats, weakness, malaise, other Eyes: denies: pain, vision change, conjunctivae inflammation, eyelid inflammation, redness, other ENT: denies: ear pain, ear discharge, nose pain, nose discharge, nose congestion , mouth pain, mouth swelling, throat pain, throat swelling, other Respiratory: denies: cough, dry, shortness of breath, hemoptysis, SOB with excertion, pleuritic pain, sputum, wheezing, other Cardiovascular: denies: chest pain, palpitations, orthopnea, paroxysmal noc. dyspnea, edema, light headedness, other Gastrointestinal: denies: nausea, vomiting, abdominal pain, diarrhea, constipation, melena, hematochezia, other Genitourinary: denies: dysuria, frequency, incontinence, hematuria, retention, other Musculoskeletal: denies: neck pain, shoulder pain, arm pain, back pain, hand pain, leg pain, foot pain, other Neurological: reports: weakness, change in speech. denies: numbness, incoordination, confusion, seizures, other - Medication Medications: Active Medications Generic Name Dose Route Start Last Admin Trade Name Freq PRN Reason Stop Dose Admin Acetaminophen 650 mg 12/08/19 16:55 12/13/19 16:27 Tylenol PO 650 mg Q4H PRN Administration Headache/Fever/Mild Pain (1-3) Atorvastatin Calcium 80 mg 12/13/19 21:00 12/13/19 20:59 Lipitor PO 80 mg HS [facility] Administration Citalopram Hydrobromide 20 mg 12/09/19 09:00 12/14/19 10:12 Celexa PO 20 mg DAILY [facility] Administration Clopidogrel Bisulfate 75 mg 12/14/19 09:00 12/14/19 10:12 Plavix PO 75 mg DAILY [facility] Administration Dipyridamole/Aspirin 1 cap 12/08/19 21:00 12/14/19 10:12 Aggrenox PO 1 cap BID [facility] Administration Enoxaparin Sodium 40 mg 12/09/19 09:00 12/14/19 10:13 Lovenox SC 40 mg 0900 [facility] Administration Famotidine 20 mg 12/08/19 21:00 12/14/19 10:12 Pepcid PO 20 mg BID [facility] Administration Insulin Glargine 25 units/ 0.25 mls @ 0 mls/hr 12/08/19 21:00 12/14/19 10:12 Miscellaneous Medication SC 0.25 mls BID [facility] Administration Insulin Human Lispro 0 units 12/08/19 16:55 12/14/19 06:22 Humalog SC 2 unit .MODERATE SLIDING SC PRN Administration Moderate Correctional Scale Sodium Chloride 10 ml 12/08/19 16:55 12/11/19 20:47 Flush - Normal Saline IVF 10 ml PRN PRN Administration Saline Flush - Exam General Appearance: awake alert Eye: PERRL, anicteric sclera ENT: normocephalic atraumatic, no oropharyngeal lesions, moist mucosa Neck: supple Heart: RRR Respiratory: CTAB Gastrointestinal: soft Extremities: no cyanosis, no clubbing, no edema Skin: normal turgor, no lesions, no rashes Neurological: cranial nerve grossly intact, facial droop, speech deficit Neurological - other findings: Right hemiparesis Musculoskeletal: normal tone, no muscle wasting Psychiatric: normal affect, normal behavior, A&O x 3, oriented to person, oriented to place, oriented to time Hosp A/P (1) Acute CVA (cerebrovascular accident) Code(s): I63.9 - CEREBRAL INFARCTION, UNSPECIFIED Status: Acute (2) Carotid stenosis, left Code(s): I65.22 - OCCLUSION AND STENOSIS OF LEFT CAROTID ARTERY Status: Acute (3) DM type 2 (diabetes mellitus, type 2) Status: Chronic Qualifiers: Diabetes mellitus catering assistant insulin use: with fci use Diabetes mellitus complication status: without complication Qualified Code(s): E11.9 - Type 2 diabetes mellitus without complications; Z79.4 - administrative coordinator (current) use of insulin (4) Dyslipidemia Code(s): E78.5 - HYPERLIPIDEMIA, UNSPECIFIED Status: Chronic (5) HTN (hypertension) Code(s): I10 - ESSENTIAL (PRIMARY) HYPERTENSION Status: Chronic Qualifiers: Hypertension type: essential hypertension Qualified Code(s): I10 - Essential (primary) hypertension (6) NSTEMI (non-ST elevated myocardial infarction) Code(s): I21.4 - NON-ST ELEVATION (NSTEMI) MYOCARDIAL INFARCTION Status: Acute (7) S/P CABG x 5 Code(s): Z95.1 - PRESENCE OF AORTOCORONARY BYPASS GRAFT Status: Acute (8) Coronary artery disease Code(s): I25.10 - ATHSCL HEART DISEASE OF [place] CORONARY ARTERY W/O ANG PCTRS Status: Chronic Qualifiers: Coronary Disease-Associated Artery/Lesion type: bypass graft [place] vs. transplanted heart: [place] heart - Plan plan discussed w/ family, PT/OT, speech therapy 64 year old presented with right UE sided weakness. Repeat HCT today showed stable changes. MRI wo contrast reviewed and showed watershed infarcts in left cerebral hemisphere MRI with contrast reviewed and showed infarctions in left frontal region BOLIVAR showed no thrombus or PFO. Carotid endarterectomy scheduled for next week. Continue home medications. Strict control of BP and BG. Neurochecks every 4 hours. Continue aggrenox and statin for secondary stroke prevention. PT/OT/Speech Continue medical management per primary team Plan discussed with the patient.
--- NOTE | 2019-12-15 03:40 | DIS ---
DATE OF ADMISSION: 12/08/2019 DATE OF DISCHARGE: 12/14/2019 DISCHARGE DIAGNOSIS: 1. Acute cerebrovascular accident. 2. Carotid stenosis of the left side. 3. Diabetes mellitus type 2. 4. Hyperlipidemia. 5. Hypertension. 6. Coronary artery disease. DISCHARGE MEDICATIONS: 1. Aggrenox 1 capsule p.o. b.i.d. 2. Clopidogrel 75 mg orally daily. 3. Tylenol 650 mg as needed for pain every 6 hours. 4. Amlodipine 10 mg orally daily. 5. Atorvastatin 40 mg nightly. 6. Metformin 500 mg orally twice daily. 7. Lantus 25 units subcu in the morning and 35 units subcu in the evening. HISTORY OF PRESENT ILLNESS AND HOSPITAL COURSE: The patient is a 64-year-old female with past medical history of coronary artery disease, diabetes, hypertension, hyperlipidemia, who presented to the hospital with acute onset of right arm weakness and difficulty speaking. MRI of the brain revealed watershed infarcts in the left cerebral hemisphere with left inferior lateral frontal lesion. MRI of the brain with contrast confirmed infarcts in the left frontal lesion area. The patient underwent BOLIVAR to rule out intracardiac thrombi. The results were negative. She was placed on dual antiplatelets due to severe left internal carotid artery stenosis that was noted on CT angio of the head and neck. The patient has progressed slowly but improved during her hospital stay and was able to ambulate and communicate prior to discharge. Cardiothoracic surgery was consulted for carotid endarterectomy. They recommended not to do the procedure at this time due to the risk associated with recent stroke. Outpatient followup has been recommended in 1 week to repeat ultrasound of the carotids and a planned procedure for carotid endarterectomy will be in 2 to 3 weeks. Discharged on Aggrenox and Plavix was also recommended. We will arrange for outpatient physical therapy prior to discharge. Job ID: [id number]
== END 2019-12-14 13:45 | disposition home health service (06) | DRG 64 ==
LOC: ERS 13:27 → 2SE 14:37
PROVIDERS: ADMIT Internal Medicine; ATTEND Internal Medicine
PROC: B24BZZ4 Ultrasonography of Heart with Aorta, Transesophageal (ICD-10-PCS; principal; 2019-12-12)
DX: I63.89 Other cerebral infarction (principal); I21.4 Non-ST elevation (NSTEMI) myocardial infarction; R29.702 NIHSS score 2; R47.01 Aphasia; I65.22 Occlusion and stenosis of left carotid artery; I10 Essential (primary) hypertension; E11.9 Type 2 diabetes mellitus without complications; G83.21 Monoplegia of upper limb affecting right dominant side; E78.00 Pure hypercholesterolemia, unspecified; E78.5 Hyperlipidemia, unspecified; I25.10 Atherosclerotic heart disease of native coronary artery without angina pectoris; I08.1 Rheumatic disorders of both mitral and tricuspid valves; F32.9 Major depressive disorder, single episode, unspecified; Z95.1 Presence of aortocoronary bypass graft; Z79.84 Long term (current) use of oral hypoglycemic drugs; Z79.899 Other long term (current) drug therapy; Z98.51 Tubal ligation status; Z87.891 Personal history of nicotine dependence; Z79.4 Long term (current) use of insulin
CPT/HCPCS: 36415; 36416; 70450; 70496; 70498; 70551; 70552; 80048; 80053; 80061; 82550; 84484; 85007; 85025; 85027; 85610; 85730; 93005; 93306; 93312; J1650; J1815; J2001; J2704; Q9967